=== PATIENT | male | born 1950 | race Caucasian/White ===

== ENCOUNTER 2017-06-13 09:03 | Day surgery (SDC) | payer OTHER ==
[~2017-06-13] VITALS: Ht 167.6 cm; Wt 68.0 kg
[~2017-06-13 09:03] MED LIST: AMOCLA875 PO; Aspirin EC81 MG PO; Ativan1 MG PO; Augmentin 875-1 EACH PO; BLOOD PRESURE MED; CLON1 PO; CLON2 PO; CRUTCH3 USE; DIPH50 PO; DULO30 PO; Flomax0.4 MG PO; HYDACE10B PO; HYDACE5 PO; IBUP800 PO; LOSA50 PO; Motion Sickness25 M1 PO; NAPR550 PO; NITR.4SL SL; Norco 5-325 Ta1 EACH PO; OXYACE5T PO; OXYC10TA19 PO; PROM25 PO; PROPECIA; Pepcid40 MG PO; Percocet 5-3251 EACH PO; QUIN5; RXHYDACE PO; RXIBUP800 PO; RXNAPNA550 PO; TAMS.4ER PO; TRAZ50 PO; VICODIN ES 7.51 EACH PO; VITAMIN D-32000 UNIT PO; ZESTORETIC 20-121 EA PO; Zofran Odt4 MG SL
== END 2017-06-13 10:57 | disposition home or self-care (01) ==
LOC: ORSCMMR 09:03 → ORD 10:00 → ORSCMMR 10:57
PROVIDERS: Internal Medicine Gastroenterology
PROC: 0DBK8ZX Excision of Ascending Colon, Via Natural or Artificial Opening Endoscopic, Diagnostic (ICD-10-PCS; principal; 2017-06-13 10:00)
PROC: 0DBP8ZX Excision of Rectum, Via Natural or Artificial Opening Endoscopic, Diagnostic (ICD-10-PCS; principal; 2017-06-13 10:00)
PROC: 0DBL8ZX Excision of Transverse Colon, Via Natural or Artificial Opening Endoscopic, Diagnostic (ICD-10-PCS; principal; 2017-06-13 10:00)
PROC: 0DBN8ZX Excision of Sigmoid Colon, Via Natural or Artificial Opening Endoscopic, Diagnostic (ICD-10-PCS; principal; 2017-06-13 10:00)
DX: Z12.11 Encounter for screening for malignant neoplasm of colon (principal); K62.1 Rectal polyp; D12.2 Benign neoplasm of ascending colon; D12.3 Benign neoplasm of transverse colon; I10 Essential (primary) hypertension; Z79.899 Other long term (current) drug therapy
CPT/HCPCS: 88305; J7120

== ENCOUNTER 2017-10-18 10:50 | Emergency (ER) | payer OTHER ==
[~2017-10-18] VITALS: Ht 167.6 cm; Wt 65.8 kg
[2017-10-18] MEDS ORDERED: Baclofen10 MG PO (12:42)
== END 2017-10-18 12:47 | disposition home or self-care (01) ==
LOC: ER 10:50
DX: S39.012A Strain of muscle, fascia and tendon of lower back, initial encounter (principal); I10 Essential (primary) hypertension; F41.9 Anxiety disorder, unspecified; Z91.048 Other nonmedicinal substance allergy status; Z79.899 Other long term (current) drug therapy; V89.9XXA Person injured in unspecified vehicle accident, initial encounter
CPT/HCPCS: 72100; 81000; 99283-25

== ENCOUNTER 2018-03-14 15:15 | Observation (INO) | payer OTHER ==
[~2018-03-14] VITALS: Ht 167.6 cm; Wt 64.3 kg
[~2018-03-14 15:15] MED LIST changes: +Baclofen10 MG PO
[2018-03-14 16:12] LABS: BASOPHILS ABSOLUTE AUTO 0.04 K/mm3 (0.00-0.23); BASOPHILS PERCENT AUTO 0 % (0-2); EOSINOPHILS ABSOLUTE AUTO 0.08 K/mm3 (0.00-0.68); EOSINOPHILS PERCENT AUTO 1 % (0-6); Hematocrit 44.5 % (37.0-53.0); Hemoglobin 14.6 g/dL (13.5-17.5); IMMATURE GRAN ABSOLUTE AUTO 0.04 K/mm3 (0.00-0.10); IMMATURE GRAN PERCENT AUTO 0 % (0-1); LYMPHOCYTES ABSOLUTE AUTO 0.67 K/mm3 (0.84-5.20); LYMPHOCYTES PERCENT AUTO 6 % (21-46); MONOCYTES ABSOLUTE AUTO 0.79 K/mm3 (0.16-1.47); MONOCYTES PERCENT AUTO 7 % (4-13); Mean Corpuscular HGB 30.5 pg (26.0-34.0); Mean Corpuscular HGB Conc 32.8 g/dL (31.5-36.5); Mean Corpuscular Volume 93 fL (80-100); Mean Platelet Volume 9.6 fL (9.1-12.4); NEUTROPHILS ABSOLUTE AUTO 9.25 K/mm3 (1.96-9.15); NEUTROPHILS PERCENT AUTO 85 % (41-73); Platelet Count 230 K/mm3 (150-400); RDW Coefficient Variation 14.2 % (11.7-14.2); Red Blood Cell Count 4.78 M/mm3 (4.30-5.90); White Blood Cell Count 10.87 K/mm3 (4.00-11.30)
[2018-03-14 16:18] LABS: Alanine Aminotransfer (ALT/SGP 33 U/L (12-78); Alk Phos 94 U/L (50-136); Anion Gap 9 mmol/L (6-16); Aspartate Aminotrans (AST/SGOT 36 U/L (12-37); Bilirubin, Total 0.7 mg/dL (0.1-1.0); Blood Urea Nitrogen 15 mg/dL (8-24); Bun/Creatinine Ratio 17.3 (12.0-20.0); CO2, Blood 23 mmol/L (21-32); Calcium, Blood 8.5 mg/dL (8.5-10.1); Chloride, Blood 107 mmol/L (98-108); Creatinine, Blood 0.87 mg/dL (0.60-1.20); Globulin, Blood 3.9 g/dL (2.2-4.0); Glomerular Filtration Rate >60 (60-); Glucose, Blood 74 mg/dL (70-99); Potassium, Blood 3.6 mmol/L (3.5-5.5); Sodium, Blood 139 mmol/L (136-145); Total Protein, Blood 7.9 g/dL (6.4-8.2); Troponin I <0.015 ng/mL (0.000-0.040)
--- NOTE | 2018-03-14 18:48 | NUR ---
PATIENT ARRIVED TO FLOOR AT 1840. A&O X4, INDEPENDENT IN THE ROOM. TELE PLACE. AT HIS SIDE. REPORT TO LARDER COOK NURSE.
[2018-03-14] MEDS ORDERED: MECLIZINE PO (18:54)
[2018-03-14] MEDS ORDERED: Klonopin0.5 MG PO (20:19)
[2018-03-14] MEDS ORDERED: BENADRYL25 MG PO (20:23)
[2018-03-14 22:34] LABS: CPK Creatine Kinase 413 U/L (39-308); Creatine Kinase MB 4.3 ng/mL (0.0-3.6); Troponin I <0.015 ng/mL (0.000-0.040)
[2018-03-15 04:29] LABS: BASOPHILS ABSOLUTE AUTO 0.03 K/mm3 (0.00-0.23); BASOPHILS PERCENT AUTO 0 % (0-2); EOSINOPHILS ABSOLUTE AUTO 0.76 K/mm3 (0.00-0.68); EOSINOPHILS PERCENT AUTO 9 % (0-6); Hematocrit 43.5 % (37.0-53.0); Hemoglobin 14.1 g/dL (13.5-17.5); IMMATURE GRAN ABSOLUTE AUTO 0.01 K/mm3 (0.00-0.10); IMMATURE GRAN PERCENT AUTO 0 % (0-1); LYMPHOCYTES ABSOLUTE AUTO 1.49 K/mm3 (0.84-5.20); LYMPHOCYTES PERCENT AUTO 18 % (21-46); MONOCYTES ABSOLUTE AUTO 0.92 K/mm3 (0.16-1.47); MONOCYTES PERCENT AUTO 11 % (4-13); Mean Corpuscular HGB 30.9 pg (26.0-34.0); Mean Corpuscular HGB Conc 32.4 g/dL (31.5-36.5); Mean Corpuscular Volume 95 fL (80-100); Mean Platelet Volume 9.5 fL (9.1-12.4); NEUTROPHILS ABSOLUTE AUTO 5.11 K/mm3 (1.96-9.15); NEUTROPHILS PERCENT AUTO 61 % (41-73); Platelet Count 222 K/mm3 (150-400); RDW Coefficient Variation 14.3 % (11.7-14.2); RDW Standard Deviation 50.1 fL (35.1-46.3); Red Blood Cell Count 4.57 M/mm3 (4.30-5.90); White Blood Cell Count 8.32 K/mm3 (4.00-11.30)
--- NOTE | 2018-03-15 04:50 | NUR ---
SHIFT SUMMARY PT REPORTS DIFFICULTY SLEEPING T/O NIGHT, SAYS HE "NORMALLY" HAS THIS ISSUE BUT TONIGHT IT FEELS " IF HE CAN'T TURN HIS BRAIN OFF." PT REPORTS FEELING ANXIOUS THIS AM, MEDICATED 2X T/O SHIFT W/1MG KLONOPIN PER ORDERS. PT DENIES ANY CHEST PAIN, SOB OR N/V THIS AM & VSS. PER CHARHOUSE WORKER MONITOR PT IS NSR W/OCCASIONAL PVC'S & HR 77. PT HAS BEEN NPO SINCE MIDNIGHT, EXCEPT FOR SIPS OF WATER W/MEDICATION. CALL LIGHT IS IN REACH & BED IS IN LOWEST POSITION.
[2018-03-15 04:51] LABS: CPK Creatine Kinase 351 U/L (39-308); Creatine Kinase MB 3.8 ng/mL (0.0-3.6); Creatine Kinase MB Index 1.1 (0.0-4.0); Troponin I <0.015 ng/mL (0.000-0.040)
[2018-03-15 04:53] LABS: Anion Gap 8 mmol/L (6-16); Blood Urea Nitrogen 20 mg/dL (8-24); Bun/Creatinine Ratio 19.6 (12.0-20.0); CHOL/HDL RATIO 4.1; CO2, Blood 27 mmol/L (21-32); Calcium, Blood 8.1 mg/dL (8.5-10.1); Chloride, Blood 107 mmol/L (98-108); Cholesterol 221 mg/dL (50-200); Creatinine, Blood 1.02 mg/dL (0.60-1.20); Glomerular Filtration Rate >60 (60-); Glucose, Blood 86 mg/dL (70-99); HDL Cholesterol 54 mg/dL (>39); LDL/HDL RATIO 2.8; Low Density Lipoprotein Chol 153 mg/dL (0-110); Potassium, Blood 3.8 mmol/L (3.5-5.5); Sodium, Blood 142 mmol/L (136-145); Triglycerides 71 mg/dL (30-160); Very Low Density Lipoprot Chol 14 mg/dL (6-32)
[2018-03-15] MEDS ORDERED: CYCL10 PO (12:36)
[2018-03-15] MEDS ORDERED: SERT50 PO (12:40)
[2018-03-15] MEDS ORDERED: TAMS.4ER PO (12:41)
[2018-03-15] MEDS ORDERED: Hair, Skin & N1 EACH PO (12:43)
[2018-03-15] MEDS ORDERED: ASPI81CH PO (12:43)
--- NOTE | 2018-03-15 13:49 | NUR ---
DISCHARGE SUMMARY PATIENT PLEASANT. ALL INFORMATION GIVEN TO THE PATIENT PRIOR TO DISCHARGE. IV REMOVED AND PATIENT WALKED OUT AFTER OFFERED A WHEELCHAIR. ALL MEDICATIONS TALKED THROUGH WITH PATIENT PRIOR TO HIS DISCHARGE.
== END 2018-03-15 13:59 | disposition home or self-care (01) ==
LOC: ER 15:15 → MEDS 15:16 → ER 15:16 → MEDS 15:16 → ENPENDDIS 03-15 11:07 → MEDS 03-15 13:59
PROVIDERS: Physician Assistant; ADMIT Internal Medicine
DX: R07.9 Chest pain, unspecified (principal); F41.0 Panic disorder [episodic paroxysmal anxiety]; I10 Essential (primary) hypertension; N40.0 Benign prostatic hyperplasia without lower urinary tract symptoms; Z79.899 Other long term (current) drug therapy; Z79.82 Long term (current) use of aspirin
CPT/HCPCS: 36415; 71046; 80048; 80053; 80061; 82550; 82553; 83036; 84484; 85025; 93005; 93010; 94762; 96374; 99285-25; G0378; J2060

== ENCOUNTER 2018-04-24 06:11 | Day surgery (SDC) | payer OTHER ==
[~2018-04-24] VITALS: Ht 167.6 cm; Wt 68.0 kg
[~2018-04-24 06:11] MED LIST changes: +ASPI81CH PO; +Allergy25 M1 PO; +BENADRYL25 MG PO; +CYCL10 PO; +HYDHCL25 PO; +Hair, Skin & N1 EACH PO; +LOSARTAN-HCTZ1 EACH PO; +MECLIZINE PO; +SERT50 PO; +Vitamin D2000 UNIT PO
--- NOTE | 2018-04-24 08:49 | NUR ---
Pt received from Luis Miguel FORDE from medical laboratory technologist. Pt is in recliner he has no radial site pain. Pt is sb/sr. Pt has call light he is in reclined postion fully awake taking po fluids. Pt stable at this time iv in left ac wnl with NS infusing at 200ml of fluid left in 1000ml bag. Right radial site wnl.
[2018-04-24] MEDS ORDERED: CLOP75 PO (08:59)
[2018-04-24] MEDS ORDERED: ASPI81CH PO (09:07)
[2018-04-24] MEDS ORDERED: METO100ER PO (11:52)
--- NOTE | 2018-04-24 13:21 | NUR ---
Report to Luis Miguel sanches reviewed medication with patient and . Ganga sanches.
--- NOTE | 2018-04-24 14:34 | NUR ---
DISCHARGE INSTRUCTIONS REVIEWED WITH PT AND IN DETAIL, USING ILLUMINATED AREAS PERTINENT TO THE CONTROL OF BLEEDING, IMMOBIILITY RESTRICTIONS AND INFECTION CONTROL. QUESTIONS ANSWERED. TR BAND REMOVED AND SITE CLEANED GENTLY. CLOTH DOT PLACED AND SPLINT BOARD REAPPLIED TO ANTERIOR FA ASPECT. IV DC'D WITH CANNULA INTACT. FOLDED 2X2 GAUZE PLACED WITH COBAN WRAP. PT AMBULATES WITHOUT GAIT DISTURBANCES OR ISSUES WITH BALANCE. STANDS AND WALKS WITHOUT VARIATION IN BODY CENTERING. DISCHARGED BY AMBULATION.
== END 2018-04-24 14:30 | disposition home or self-care (01) ==
LOC: MHTC 06:11
DX: R94.39 Abnormal result of other cardiovascular function study (principal); Z88.5 Allergy status to narcotic agent
CPT/HCPCS: 85347; 93454; 99152; 99153; C1725; C1769; C1874; C1887; C1894; C9600; J1644; J2250; J3010; J7030; Q9967

== ENCOUNTER 2018-08-20 13:04 | Emergency (ER) | payer SELFPAY ==
[~2018-08-20] VITALS: Ht 167.6 cm; Wt 68.0 kg
[~2018-08-20 13:04] MED LIST changes: -ASPI325 PO; -Cyclobenzaprine5 MG PO; -KETO10 PO
== END 2018-08-20 13:15 | disposition left against medical advice (07) ==
LOC: ER 13:04
DX: Z53.21 Procedure and treatment not carried out due to patient leaving prior to being seen by health care provider (principal)

== ENCOUNTER → 2018-08-20 | Outpatient (CLI) | payer OTHER ==
[~2018-08-20] MED LIST changes: +ACET325 PO; +ASPI325 PO; +ATOR40TA PO; +CLOP75 PO; +Cyclobenzaprine5 MG PO; +KETO10 PO; +LORA1 PO; +METO25ER PO; +Nitrostat0.4 MG SL
== END | disposition home or self-care (01) ==
LOC: LAB SHORT 13:03 → PLD 13:03
DX: D10.5 Benign neoplasm of other parts of oropharynx (principal)
CPT/HCPCS: 88305

== ENCOUNTER 2018-08-21 20:42 | Emergency (ER) | payer SELFPAY ==
[~2018-08-21] VITALS: Ht 154.9 cm; Wt 68.0 kg
== END 2018-08-21 21:20 | disposition left against medical advice (07) ==
LOC: ER 20:42
DX: Z53.21 Procedure and treatment not carried out due to patient leaving prior to being seen by health care provider (principal); R06.02 Shortness of breath

== ENCOUNTER 2018-11-06 23:56 | Emergency (ER) | payer OTHER ==
[~2018-11-06] VITALS: Ht 167.6 cm; Wt 68.0 kg
[2018-11-07] MEDS ORDERED: LOSARTAN-HCTZ1 EACH PO (00:08)
[2018-11-07] MEDS ORDERED: METO25ER PO (00:08)
[2018-11-07] MEDS ORDERED: CLOP75 PO (00:08)
[2018-11-07] MEDS ORDERED: ATOR40TA PO (00:09)
[2018-11-07] MEDS ORDERED: TAMS.4ER PO (00:09)
[2018-11-07] MEDS ORDERED: ASPI325 PO (00:09)
[2018-11-07] MEDS ORDERED: CLON1 PO (00:10)
[2018-11-07] MEDS ORDERED: SERT50 PO (00:10)
[2018-11-07] MEDS ORDERED: Cyclobenzaprine5 MG PO (00:26)
[2018-11-07] MEDS ORDERED: KETO10 PO (00:26)
== END 2018-11-07 00:45 | disposition home or self-care (01) ==
LOC: ER 23:56
DX: S16.1XXA Strain of muscle, fascia and tendon at neck level, initial encounter (principal); I10 Essential (primary) hypertension; F41.0 Panic disorder [episodic paroxysmal anxiety]; Z87.442 Personal history of urinary calculi; Z88.5 Allergy status to narcotic agent; Z91.048 Other nonmedicinal substance allergy status; Z79.82 Long term (current) use of aspirin; Z79.899 Other long term (current) drug therapy; V89.2XXA Person injured in unspecified motor-vehicle accident, traffic, initial encounter
CPT/HCPCS: 99284-25

== ENCOUNTER 2019-02-05 11:40 | Emergency (ER) | payer OTHER ==
[~2019-02-05] VITALS: Ht 167.6 cm; Wt 65.8 kg
[~2019-02-05 11:40] MED LIST changes: +ASPI325 PO; +Cyclobenzaprine5 MG PO; +KETO10 PO
[2019-02-05 12:22] LABS: BASOPHILS ABSOLUTE AUTO 0.04 K/mm3 (0.00-0.23); BASOPHILS PERCENT AUTO 1 % (0-2); EOSINOPHILS PERCENT AUTO 3 % (0-6); Hematocrit 45.8 % (37.0-53.0); IMMATURE GRAN ABSOLUTE AUTO 0.01 K/mm3 (0.00-0.10); IMMATURE GRAN PERCENT AUTO 0 % (0-1); LYMPHOCYTES ABSOLUTE AUTO 1.41 K/mm3 (0.84-5.20); LYMPHOCYTES PERCENT AUTO 18 % (21-46); MONOCYTES ABSOLUTE AUTO 0.99 K/mm3 (0.16-1.47); MONOCYTES PERCENT AUTO 13 % (4-13); Mean Corpuscular HGB 31.1 pg (26.0-34.0); Mean Corpuscular HGB Conc 32.8 g/dL (31.5-36.5); Mean Corpuscular Volume 95 fL (80-100); Mean Platelet Volume 9.3 fL (9.1-12.4); NEUTROPHILS ABSOLUTE AUTO 5.06 K/mm3 (1.96-9.15); NEUTROPHILS PERCENT AUTO 66 % (41-73); Platelet Count 263 K/mm3 (150-400); RDW Coefficient Variation 13.8 % (11.7-14.2); RDW Standard Deviation 48.8 fL (35.1-46.3); Red Blood Cell Count 4.82 M/mm3 (4.30-5.90); White Blood Cell Count 7.71 K/mm3 (4.00-11.30)
[2019-02-05 12:47] LABS: Alanine Aminotransfer (ALT/SGP 35 U/L (12-78); Albumin, Blood 3.9 g/dL (3.4-5.0); Albumin/Globulin Ratio 1.1 (0.8-1.8); Alk Phos 102 U/L (50-136); Anion Gap 4 mmol/L (6-16); Aspartate Aminotrans (AST/SGOT 29 U/L (12-37); Bilirubin, Total 0.8 mg/dL (0.1-1.0); Blood Urea Nitrogen 14 mg/dL (8-24); Bun/Creatinine Ratio 20.1 (12.0-20.0); CO2, Blood 29 mmol/L (21-32); Calcium, Blood 9.1 mg/dL (8.5-10.1); Chloride, Blood 108 mmol/L (98-108); Globulin, Blood 3.7 g/dL (2.2-4.0); Glomerular Filtration Rate >60 (60-); Glucose, Blood 93 mg/dL (70-99); Potassium, Blood 3.8 mmol/L (3.5-5.5); Sodium, Blood 141 mmol/L (136-145); Total Protein, Blood 7.6 g/dL (6.4-8.2); Troponin I <0.015 ng/mL (0.000-0.040)
[2019-02-05] MEDS ORDERED: Norco 10-325 T1 EACH PO (16:41)
== END 2019-02-05 16:57 | disposition home or self-care (01) ==
LOC: ER 11:40
PROVIDERS: Emergency Medicine
DX: R07.89 Other chest pain (principal); I10 Essential (primary) hypertension; F41.0 Panic disorder [episodic paroxysmal anxiety]; M54.9 Dorsalgia, unspecified; G89.29 Other chronic pain; M81.0 Age-related osteoporosis without current pathological fracture; Z88.5 Allergy status to narcotic agent; Z79.82 Long term (current) use of aspirin; Z79.899 Other long term (current) drug therapy; Z87.442 Personal history of urinary calculi
CPT/HCPCS: 36415; 71101; 71260; 80053; 84484; 85025; 93005; 93010; 99285-25; Q9967

== ENCOUNTER 2020-01-15 15:32 | Emergency (ER) | payer OTHER ==
[~2020-01-15] VITALS: Ht 167.6 cm; Wt 59.0 kg
[~2020-01-15 15:32] MED LIST changes: +Clonazepam1 M1 PO; +GABA100 PO; +Norco 10-325 T1 EACH PO
[2020-01-15] MEDS ORDERED: METO25ER PO (16:40)
[2020-01-15] MEDS ORDERED: SERT100 PO (16:42)
[2020-01-15] MEDS ORDERED: OXYC10TA19 PO (16:42)
[2020-01-15 17:16] LABS: BASOPHILS ABSOLUTE AUTO 0.03 K/mm3 (0.00-0.23); BASOPHILS PERCENT AUTO 0 % (0-2); EOSINOPHILS ABSOLUTE AUTO 0.04 K/mm3 (0.00-0.68); EOSINOPHILS PERCENT AUTO 1 % (0-6); Hematocrit 37.4 % (37.0-53.0); Hemoglobin 12.2 g/dL (13.5-17.5); IMMATURE GRAN ABSOLUTE AUTO 0.01 K/mm3 (0.00-0.10); IMMATURE GRAN PERCENT AUTO 0 % (0-1); LYMPHOCYTES ABSOLUTE AUTO 1.44 K/mm3 (0.84-5.20); LYMPHOCYTES PERCENT AUTO 20 % (21-46); MONOCYTES ABSOLUTE AUTO 0.73 K/mm3 (0.16-1.47); MONOCYTES PERCENT AUTO 10 % (4-13); Mean Corpuscular HGB 30.3 pg (26.0-34.0); Mean Corpuscular HGB Conc 32.6 g/dL (31.5-36.5); Mean Corpuscular Volume 93 fL (80-100); Mean Platelet Volume 8.6 fL (9.1-12.4); NEUTROPHILS ABSOLUTE AUTO 4.92 K/mm3 (1.96-9.15); NEUTROPHILS PERCENT AUTO 69 % (41-73); Platelet Count 362 K/mm3 (150-400); RDW Coefficient Variation 12.9 % (11.7-14.2); RDW Standard Deviation 44.2 fL (35.1-46.3); Red Blood Cell Count 4.03 M/mm3 (4.30-5.90); White Blood Cell Count 7.17 K/mm3 (4.00-11.30)
[2020-01-15 18:04] LABS: Alanine Aminotransfer (ALT/SGP 27 U/L (12-78); Albumin, Blood 3.3 g/dL (3.4-5.0); Albumin/Globulin Ratio 0.9 (0.8-1.8); Alk Phos 108 U/L (50-136); Anion Gap 4 mmol/L (6-16); Aspartate Aminotrans (AST/SGOT 20 U/L (12-37); Bilirubin, Total 0.3 mg/dL (0.1-1.0); Blood Urea Nitrogen 11 mg/dL (8-24); Bun/Creatinine Ratio 14.9 (12.0-20.0); CO2, Blood 28 mmol/L (21-32); Calcium, Blood 8.8 mg/dL (8.5-10.1); Chloride, Blood 108 mmol/L (98-108); Creatinine, Blood 0.74 mg/dL (0.60-1.20); Globulin, Blood 3.7 g/dL (2.2-4.0); Glomerular Filtration Rate >60 (60-); Glucose, Blood 83 mg/dL (70-99); Potassium, Blood 3.5 mmol/L (3.5-5.5); Sodium, Blood 140 mmol/L (136-145); Troponin I <0.015 ng/mL (0.000-0.040)
[2020-01-15 18:42] LABS: Influenza A, PCR Negative (NEGATIVE); Influenza B, PCR Negative (NEGATIVE); Resp Syncytial Virus, PCR Negative (NEGATIVE); SARS-Cov-2 (COVID-19) PCR, MMC Negative (NEGATIVE)
[2020-01-15 19:00] LABS: Source, Urine Clean Catch
[2020-01-15 19:08] LABS: Bilirubin, Urine Neg (Neg); Blood, Urine 2+ (Neg); Glucose Qualitative, Urine Neg (Neg); Ketones, Urine 1+ (Neg); Leukocyte Esterase, Urine 1+ (Neg); Nitrite, Urine Neg (Neg); Protein, Urine 1+ (Neg); Urobilinogen, Urine NORM (Normal)
[2020-01-15 19:24] LABS: Appearance, Urine Hazy (Clear); Color, Urine Yellow (P-Yellow)
[2020-01-15 19:26] LABS: Amorphous Light (0-Heavy); Bacteria Rare /hpf; Calcium Oxalate Crystals Many /hpf; Mucus Light (0-Heavy); Red Blood Cells, Urine 0-2 /hpf (0-2); Squamous Epithelial Cells Not Seen /hpf (Few); White Blood Cells, Urine 0-2 /hpf (0-5)
[2020-01-15] MEDS ORDERED: Zofran4 MG PO (19:54)
== END 2020-01-15 20:15 | disposition home or self-care (01) ==
LOC: ER 15:32
PROVIDERS: Physician Assistant
DX: R11.0 Nausea (principal); R53.81 Other malaise; R63.0 Anorexia; I10 Essential (primary) hypertension; F41.9 Anxiety disorder, unspecified; F41.0 Panic disorder [episodic paroxysmal anxiety]; I25.10 Atherosclerotic heart disease of native coronary artery without angina pectoris; Z98.890 Other specified postprocedural states; Z88.5 Allergy status to narcotic agent; Z91.09 Other allergy status, other than to drugs and biological substances; Z79.899 Other long term (current) drug therapy; Z20.828 Contact with and (suspected) exposure to other viral communicable diseases; Z79.82 Long term (current) use of aspirin; Z87.442 Personal history of urinary calculi; Z95.5 Presence of coronary angioplasty implant and graft
CPT/HCPCS: 0241U; 36415; 80053; 81001; 83690; 84484; 85025; 96361; 96374; 99283-25; A9270-GY; J2405; J7030

== ENCOUNTER 2020-01-18 20:56 | Emergency (ER) | payer OTHER ==
[~2020-01-18] VITALS: Ht 167.6 cm; Wt 63.5 kg
[~2020-01-18 20:56] MED LIST changes: +SERT100 PO; +Zofran4 MG PO
[2020-01-18] MEDS ORDERED: NITR.4SL SL (23:02)
[2020-01-18] MEDS ORDERED: CYCL10 PO (23:02)
== END 2020-01-18 23:14 | disposition home or self-care (01) ==
LOC: ER 20:56
DX: M79.604 Pain in right leg (principal); F41.0 Panic disorder [episodic paroxysmal anxiety]; F41.9 Anxiety disorder, unspecified; Z79.899 Other long term (current) drug therapy; Z95.5 Presence of coronary angioplasty implant and graft; Z91.09 Other allergy status, other than to drugs and biological substances; Z88.5 Allergy status to narcotic agent; Z79.02 Long term (current) use of antithrombotics/antiplatelets; Z87.442 Personal history of urinary calculi
CPT/HCPCS: 93971; 99283-25

== ENCOUNTER 2020-07-07 23:21 | Observation (INO) | payer OTHER ==
[~2020-07-07] VITALS: Ht 167.6 cm; Wt 68.2 kg
[2020-07-08] MEDS ORDERED: Aspir 8181 MG PO (00:28)
[2020-07-08 00:36] LABS: BASOPHILS ABSOLUTE AUTO 0.04 K/mm3 (0.00-0.23); BASOPHILS PERCENT AUTO 1 % (0-2); EOSINOPHILS PERCENT AUTO 3 % (0-6); Hematocrit 36.4 % (37.0-53.0); IMMATURE GRAN ABSOLUTE AUTO 0.02 K/mm3 (0.00-0.10); IMMATURE GRAN PERCENT AUTO 0 % (0-1); LYMPHOCYTES ABSOLUTE AUTO 1.29 K/mm3 (0.84-5.20); LYMPHOCYTES PERCENT AUTO 19 % (21-46); MONOCYTES ABSOLUTE AUTO 0.55 K/mm3 (0.16-1.47); MONOCYTES PERCENT AUTO 8 % (4-13); Mean Corpuscular HGB 30.3 pg (26.0-34.0); Mean Corpuscular Volume 92 fL (80-100); NEUTROPHILS ABSOLUTE AUTO 4.72 K/mm3 (1.96-9.15); NEUTROPHILS PERCENT AUTO 69 % (41-73); Platelet Count 222 K/mm3 (150-400); RDW Coefficient Variation 14.8 % (11.7-14.2); RDW Standard Deviation 50.3 fL (35.1-46.3); Red Blood Cell Count 3.96 M/mm3 (4.30-5.90); White Blood Cell Count 6.82 K/mm3 (4.00-11.30)
[2020-07-08 00:56] LABS: Alanine Aminotransfer (ALT/SGP 32 U/L (12-78); Albumin, Blood 3.4 g/dL (3.4-5.0); Albumin/Globulin Ratio 1.2 (0.8-1.8); Alk Phos 89 U/L (50-136); Anion Gap 6 mmol/L (6-16); Aspartate Aminotrans (AST/SGOT 23 U/L (12-37); Bilirubin, Total 0.2 mg/dL (0.1-1.0); Blood Urea Nitrogen 12 mg/dL (8-24); Bun/Creatinine Ratio 12.9 (12.0-20.0); CO2, Blood 26 mmol/L (21-32); Calcium, Blood 7.9 mg/dL (8.5-10.1); Chloride, Blood 107 mmol/L (98-108); Creatinine, Blood 0.93 mg/dL (0.60-1.20); Globulin, Blood 2.8 g/dL (2.2-4.0); Glomerular Filtration Rate >60 (60-); Glucose, Blood 107 mg/dL (70-99); Potassium, Blood 3.4 mmol/L (3.5-5.5); Sodium, Blood 139 mmol/L (136-145); Total Protein, Blood 6.2 g/dL (6.4-8.2); Troponin I <0.015 ng/mL (0.000-0.040)
[2020-07-08 01:19] LABS: SARS-Cov-2 (COVID-19) PCR, MMC NEGATIVE (NEGATIVE)
--- NOTE | 2020-07-08 04:43 | NUR ---
SHIFT SUMMARY REPORT RECIEVED FROM RUBÉN FORDE. PATIENT TO ROOM VIA STRETCHER AND TRANSFERRED INDEPENDENTLY TO THE BED @0125. PATIENT ACCOMPANIED BY HIS . PATIENT IS ALERT AND ORIENTED X4. INDEPENDENT IN THE ROOM. COMPLAINED OF 4/10 CP BUT REFUSED NITRO AND SAID HE THINKS HE IS JUST FEELING A LITTLE ANXIOUS. PATIENT NOW SLEEPING. SB IN THE 40s-50s. 02 SATS >95% ON RA. VSS, NO ACUTE CHANGES. CALL LIGHT IN REACH.
--- NOTE | 2020-07-08 12:59 | NUR ---
UPDATE PHARMACY COORDINATOR UPDATED ON PT'S HYPERTENSIVE STATE. ORDERS PROVIDED, SEE EMAR.
--- NOTE | 2020-07-08 13:56 | NUR ---
UPDATE PHYSICIAN NOTIFIED OF PT'S CONTINUING HYPERTENSIVE STATE. ORDERS PROVIDED. SEE EMAR.
--- NOTE | 2020-07-08 18:10 | NUR ---
Per admit trigger, I met with Mr. Nunez to offer information about advanced care planning. He was just out of surgery and spouse at [facility]. Both report neither need or desire to complete ACP forms.
--- NOTE | 2020-07-08 18:14 | NUR ---
SHIFT SUMMARY PT ALERT AND ORIENTED X 4. FRIEND AND UPDATED T/O SHIFT. FRIEND AT BEDSIDE THIS EVENING. PT TO HEART CENTER THIS AM FOR PACER PLACEMENT. SITE WNL UPON ARRIVAL BACK TO UNIT. PT HYPERTENSIVE. PHYSICIAN NOTIFIED. PRN MEDICATIONS ORDERED AND GIVEN. HR STABLE. BP REPORTS PAIN. MEDICATION GIVEN PER EMAR. PT REPORTS RELIEF. OXYGEN SATURATION MAINTAINED ABOVE 92% ON RA. CP NOTED THIS AM, HEALTH AND SOCIAL CARE TEACHER NOTIFIED. CARDIOLOGY FELT PAIN WAS RELATED TO ANXIETY D/T NEGATIVE TROPONIN AND EKG. PT REPORTS NO CP OR PRESSURE AFTER PROCEDURE. PT SBA IN ROOM. WILL CONTINUE TO MONITOR UNTIL REPORT GIVEN TO NIGHTSHIFT RN.
--- NOTE | 2020-07-09 04:37 | NUR ---
2000: 70 YO MALE S/P PACEMAKER INSERTION - INSERTION SITE ON LEFT SHOULDER IS DRESSED WITH PRESSURE DRESSING. NO DRAINAGE, BLEEDING, OR SWELLING NOTED. PT'S PAIN AT LEFT CHEST WALL WOUND IS WELL CONTROLLED WITH PAIN MEDICATION PRN (SEE MAR). PT MONITORED VIA TELEMETRY, SINUS AT 74. BLOOD PRESSURES ARE STABLE, PT CONTINUES TO SAT >94% ON ROOM AIR. IV IN RIGHT AC FLUSHED EASILY, SITE DRESSING IS C/D/I. CALL LIGHT WITHIN REACH, WILL CONTINUE TO MONITOR.
--- NOTE | 2020-07-09 06:07 | NUR ---
SHIFT SUMMARY PT SLEPT WELL MOST OF THE SHIFT, BLOOD PRESSURE WAS WELL CONTROLLED WITH SYSTOLIC 150-161. PAIN WELL MANAGED BY PRN MEDICATION.
[2020-07-09] MEDS ORDERED: OXAYDO5 M2 PO (09:22)
[2020-07-09] MEDS ORDERED: SENN187 PO (09:23)
[2020-07-09] MEDS ORDERED: VISBIOME 112.51 EACH PO (09:24)
[2020-07-09] MEDS ORDERED: CARV6.25 (09:26)
[2020-07-09] MEDS ORDERED: CEPH500 PO (09:27)
[2020-07-09] MEDS ORDERED: Acetaminophen325 M1 PO (09:28)
--- NOTE | 2020-07-09 10:42 | NUR ---
DISCHARGE INSTRUCTIONS REVIEWED BY DENISE WITH PT. LEFT ARM SLING IN PLACE. AMBULATED FROM UNIT WITHOUT DIFFICULTY.
== END 2020-07-09 10:21 | disposition home or self-care (01) ==
LOC: ER 23:21 → PCU 23:22
PROVIDERS: Physician Assistant; ADMIT Internal Medicine
DX: I49.5 Sick sinus syndrome (principal); R55 Syncope and collapse; I10 Essential (primary) hypertension; I25.10 Atherosclerotic heart disease of native coronary artery without angina pectoris; I25.2 Old myocardial infarction; I73.9 Peripheral vascular disease, unspecified; E78.5 Hyperlipidemia, unspecified; F41.9 Anxiety disorder, unspecified; G89.29 Other chronic pain; M54.9 Dorsalgia, unspecified; E87.6 Hypokalemia; G47.00 Insomnia, unspecified; N40.0 Benign prostatic hyperplasia without lower urinary tract symptoms; I47.1 Supraventricular tachycardia; Z79.82 Long term (current) use of aspirin; Z98.1 Arthrodesis status; Z95.5 Presence of coronary angioplasty implant and graft; Z88.5 Allergy status to narcotic agent; Z91.048 Other nonmedicinal substance allergy status; Z82.49 Family history of ischemic heart disease and other diseases of the circulatory system; Z20.822 Contact with and (suspected) exposure to COVID-19
CPT/HCPCS: 33208; 36415; 71045; 71046; 76937; 80053; 84484; 85025; 93005; 93010; 93306; 96365; 96375; 96376; 99152; 99153; 99285-25; A9270; C1781; C1785; C1894; C1898; G0378; J0360; J0690; J1644; J2060; J2250; J3010; J7030; J7040; J7050; U0004

== ENCOUNTER 2020-07-10 20:53 | Emergency (ER) | payer OTHER ==
[~2020-07-10] VITALS: Ht 167.6 cm; Wt 63.5 kg
[~2020-07-10 20:53] MED LIST changes: +Acetaminophen325 M1 PO; +Aspir 8181 MG PO; +CARV6.25; +CEPH500 PO; +OXAYDO5 M2 PO; +SENN187 PO; +VISBIOME 112.51 EACH PO
[2020-07-10 21:36] LABS: BASOPHILS ABSOLUTE AUTO 0.03 K/mm3 (0.00-0.23); BASOPHILS PERCENT AUTO 0 % (0-2); EOSINOPHILS ABSOLUTE AUTO 0.22 K/mm3 (0.00-0.68); EOSINOPHILS PERCENT AUTO 3 % (0-6); Hematocrit 40.8 % (37.0-53.0); Hemoglobin 13.4 g/dL (13.5-17.5); IMMATURE GRAN ABSOLUTE AUTO 0.02 K/mm3 (0.00-0.10); IMMATURE GRAN PERCENT AUTO 0 % (0-1); LYMPHOCYTES ABSOLUTE AUTO 1.17 K/mm3 (0.84-5.20); LYMPHOCYTES PERCENT AUTO 15 % (21-46); MONOCYTES ABSOLUTE AUTO 0.65 K/mm3 (0.16-1.47); MONOCYTES PERCENT AUTO 8 % (4-13); Mean Corpuscular HGB 30.1 pg (26.0-34.0); Mean Corpuscular HGB Conc 32.8 g/dL (31.5-36.5); Mean Corpuscular Volume 92 fL (80-100); Mean Platelet Volume 9.8 fL (9.1-12.4); NEUTROPHILS ABSOLUTE AUTO 5.65 K/mm3 (1.96-9.15); NEUTROPHILS PERCENT AUTO 73 % (41-73); Platelet Count 179 K/mm3 (150-400); RDW Coefficient Variation 14.4 % (11.7-14.2); RDW Standard Deviation 48.6 fL (35.1-46.3); Red Blood Cell Count 4.45 M/mm3 (4.30-5.90); White Blood Cell Count 7.74 K/mm3 (4.00-11.30)
== END 2020-07-10 22:56 | disposition home or self-care (01) ==
LOC: ER 20:53
PROVIDERS: Physician Assistant
DX: Z48.01 Encounter for change or removal of surgical wound dressing (principal); I10 Essential (primary) hypertension; Z91.09 Other allergy status, other than to drugs and biological substances; Z79.82 Long term (current) use of aspirin; Z79.899 Other long term (current) drug therapy
CPT/HCPCS: 36415; 71046; 85025; 99283-25

== ENCOUNTER 2020-09-05 14:06 | Observation (INO) | payer OTHER ==
[~2020-09-05] VITALS: Ht 167.6 cm; Wt 58.0 kg
[2020-09-05 14:52] LABS: BASOPHILS ABSOLUTE AUTO 0.03 K/mm3 (0.00-0.23); BASOPHILS PERCENT AUTO 1 % (0-2); EOSINOPHILS ABSOLUTE AUTO 0.21 K/mm3 (0.00-0.68); EOSINOPHILS PERCENT AUTO 4 % (0-6); Hemoglobin 13.3 g/dL (13.5-17.5); IMMATURE GRAN ABSOLUTE AUTO 0.02 K/mm3 (0.00-0.10); IMMATURE GRAN PERCENT AUTO 0 % (0-1); LYMPHOCYTES ABSOLUTE AUTO 1.27 K/mm3 (0.84-5.20); LYMPHOCYTES PERCENT AUTO 25 % (21-46); MONOCYTES ABSOLUTE AUTO 0.51 K/mm3 (0.16-1.47); MONOCYTES PERCENT AUTO 10 % (4-13); Mean Corpuscular HGB Conc 33.3 g/dL (31.5-36.5); Mean Corpuscular Volume 93 fL (80-100); Mean Platelet Volume 10.2 fL (9.1-12.4); NEUTROPHILS ABSOLUTE AUTO 3.12 K/mm3 (1.96-9.15); NEUTROPHILS PERCENT AUTO 60 % (41-73); Platelet Count 199 K/mm3 (150-400); RDW Coefficient Variation 14.3 % (11.7-14.2); RDW Standard Deviation 48.7 fL (35.1-46.3); Red Blood Cell Count 4.29 M/mm3 (4.30-5.90); White Blood Cell Count 5.16 K/mm3 (4.00-11.30)
[2020-09-05 15:06] LABS: Alanine Aminotransfer (ALT/SGP 32 U/L (12-78); Albumin, Blood 3.5 g/dL (3.4-5.0); Albumin/Globulin Ratio 1.1 (0.8-1.8); Alk Phos 93 U/L (50-136); Anion Gap 5 mmol/L (6-16); Aspartate Aminotrans (AST/SGOT 26 U/L (12-37); Bilirubin, Total 0.2 mg/dL (0.1-1.0); Blood Urea Nitrogen 18 mg/dL (8-24); CO2, Blood 25 mmol/L (21-32); Calcium, Blood 8.8 mg/dL (8.5-10.1); Chloride, Blood 112 mmol/L (98-108); Creatinine, Blood 0.95 mg/dL (0.60-1.20); Globulin, Blood 3.2 g/dL (2.2-4.0); Glomerular Filtration Rate >60 (60-); Glucose, Blood 113 mg/dL (70-99); Sodium, Blood 142 mmol/L (136-145); Total Protein, Blood 6.7 g/dL (6.4-8.2); Troponin I <0.015 ng/mL (0.000-0.040)
[2020-09-06 04:30] LABS: BASOPHILS ABSOLUTE AUTO 0.04 K/mm3 (0.00-0.23); BASOPHILS PERCENT AUTO 1 % (0-2); EOSINOPHILS PERCENT AUTO 5 % (0-6); Hematocrit 42.2 % (37.0-53.0); Hemoglobin 13.7 g/dL (13.5-17.5); IMMATURE GRAN ABSOLUTE AUTO 0.01 K/mm3 (0.00-0.10); IMMATURE GRAN PERCENT AUTO 0 % (0-1); LYMPHOCYTES ABSOLUTE AUTO 1.85 K/mm3 (0.84-5.20); LYMPHOCYTES PERCENT AUTO 32 % (21-46); MONOCYTES ABSOLUTE AUTO 0.51 K/mm3 (0.16-1.47); MONOCYTES PERCENT AUTO 9 % (4-13); Mean Corpuscular HGB 30.4 pg (26.0-34.0); Mean Corpuscular HGB Conc 32.5 g/dL (31.5-36.5); Mean Corpuscular Volume 94 fL (80-100); NEUTROPHILS ABSOLUTE AUTO 3.04 K/mm3 (1.96-9.15); NEUTROPHILS PERCENT AUTO 53 % (41-73); Platelet Count 189 K/mm3 (150-400); RDW Coefficient Variation 14.3 % (11.7-14.2); RDW Standard Deviation 50.2 fL (35.1-46.3); White Blood Cell Count 5.75 K/mm3 (4.00-11.30)
[2020-09-06 04:55] LABS: Anion Gap 4 mmol/L (6-16); Blood Urea Nitrogen 15 mg/dL (8-24); Bun/Creatinine Ratio 16.5 (12.0-20.0); CO2, Blood 26 mmol/L (21-32); Calcium, Blood 8.4 mg/dL (8.5-10.1); Chloride, Blood 113 mmol/L (98-108); Creatinine, Blood 0.91 mg/dL (0.60-1.20); Glomerular Filtration Rate >60 (60-); Glucose, Blood 86 mg/dL (70-99); Sodium, Blood 143 mmol/L (136-145); Troponin I <0.015 ng/mL (0.000-0.040)
--- NOTE | 2020-09-06 05:55 | NUR ---
SHIFT SUMMARY PT WAS A NEW ADMIT DURING THE NIGHT, ARRIVING ON THE FLOOR AT 2152. HE WAS ADMITTED FOR ANGINA. A&O X 4, INDEPENDENT IN THE ROOM. PT DENIED ANY CP ON ARRIVAL AT THE UNIT AND THROUGH THE NIGHT. NO C/O SOB OR NAUSEA. VITAL SIGNS STABLE. TELE SHOWED SB/NSR IN THE 50-60S. NO ACUTE CHANGES IN PT CONDITION NOTED SINCE ADMISSION. WILL CONTINUE TO MONITOR AND TREAT PER EMAR UNTIL HAND OFF TO DAY SHIFT RN.
--- NOTE | 2020-09-06 10:10 | NUR ---
PT DISCHARGED HOME. FOLLOW UP APPOINTMENTS MADE. MEDS SENT TO PHARMACY OF CHOICE, NEW MEDS EDUCATED ON. PRESENT UPON DISCHARGE . IV REMOVED, NO SS OF INFECTION NOTED. PT DRESSED SELF AND WAS TAKEN DOWN BY ESCORT.
== END 2020-09-06 10:00 | disposition home or self-care (01) ==
LOC: ER 14:06 → MEDS 14:07 → ENPENDDIS 09-06 09:20 → MEDS 09-06 10:00
PROVIDERS: Emergency Medicine; ADMIT Internal Medicine
DX: M94.0 Chondrocostal junction syndrome [Tietze] (principal); I25.10 Atherosclerotic heart disease of native coronary artery without angina pectoris; I49.5 Sick sinus syndrome; I67.9 Cerebrovascular disease, unspecified; E78.5 Hyperlipidemia, unspecified; I10 Essential (primary) hypertension; N40.0 Benign prostatic hyperplasia without lower urinary tract symptoms; F41.9 Anxiety disorder, unspecified; G47.00 Insomnia, unspecified; Z95.0 Presence of cardiac pacemaker; Z95.5 Presence of coronary angioplasty implant and graft; Z79.82 Long term (current) use of aspirin; Z88.5 Allergy status to narcotic agent; Z91.048 Other nonmedicinal substance allergy status; Z98.1 Arthrodesis status
CPT/HCPCS: 36415; 71046; 80048; 80053; 83880; 84484; 85025; 93005; 93010; A9270; Q0177

== ENCOUNTER 2021-02-17 07:00 | Emergency (ER) | payer OTHER ==
[~2021-02-17] VITALS: Ht 154.9 cm; Wt 63.5 kg
[2021-02-17] MEDS ORDERED: BACLOFEN5 M1 PO (08:05)
[2021-02-17] MEDS ORDERED: LIDO700A20 TOP (08:05)
[2021-02-18] MEDS ORDERED: NAPROXEN250 M1 PO (21:52)
[2021-02-18] MEDS ORDERED: HYDR1TAB94 PO (21:52)
== END 2021-02-17 08:42 | disposition home or self-care (01) ==
LOC: ER 07:00
DX: M54.2 Cervicalgia (principal); I25.10 Atherosclerotic heart disease of native coronary artery without angina pectoris; E78.5 Hyperlipidemia, unspecified; I11.0 Hypertensive heart disease with heart failure; I50.9 Heart failure, unspecified; Z88.5 Allergy status to narcotic agent; Z79.82 Long term (current) use of aspirin; Z79.899 Other long term (current) drug therapy; Z91.048 Other nonmedicinal substance allergy status
CPT/HCPCS: 96372; 99283-25; A9270; J1885

== ENCOUNTER 2021-02-18 16:05 | Emergency (ER) | payer OTHER ==
[~2021-02-18] VITALS: Ht 165.1 cm; Wt 63.5 kg
[~2021-02-18 16:05] MED LIST changes: +BACLOFEN5 M1 PO; +LIDO700A20 TOP
[2021-02-18] MEDS ORDERED: HYDR1TAB94 PO (21:52)
[2021-02-18] MEDS ORDERED: NAPROXEN250 M1 PO (21:52)
== END 2021-02-18 22:10 | disposition home or self-care (01) ==
LOC: ER 16:05
DX: S13.4XXA Sprain of ligaments of cervical spine, initial encounter (principal); I25.10 Atherosclerotic heart disease of native coronary artery without angina pectoris; I10 Essential (primary) hypertension; E78.5 Hyperlipidemia, unspecified; N40.0 Benign prostatic hyperplasia without lower urinary tract symptoms; Z95.5 Presence of coronary angioplasty implant and graft; G47.00 Insomnia, unspecified; Z95.0 Presence of cardiac pacemaker; Z91.048 Other nonmedicinal substance allergy status; Z88.5 Allergy status to narcotic agent; Z79.82 Long term (current) use of aspirin; Z79.899 Other long term (current) drug therapy; X58.XXXA Exposure to other specified factors, initial encounter
CPT/HCPCS: 70450; 72125; 96372; 99284-25; A9270; J1885

== ENCOUNTER 2021-11-29 21:39 | Emergency (ER) | payer OTHER ==
[~2021-11-29] VITALS: Ht 167.6 cm; Wt 59.0 kg
[~2021-11-29 21:39] MED LIST changes: +HYDR1TAB94 PO; +NAPROXEN250 M1 PO
[2021-11-29 22:33] LABS: BASOPHILS ABSOLUTE AUTO 0.04 K/mm3 (0.00-0.23); BASOPHILS PERCENT AUTO 1 % (0-2); EOSINOPHILS ABSOLUTE AUTO 0.26 K/mm3 (0.00-0.68); EOSINOPHILS PERCENT AUTO 4 % (0-6); Hemoglobin 14.4 g/dL (13.5-17.5); IMMATURE GRAN ABSOLUTE AUTO 0.01 K/mm3 (0.00-0.10); IMMATURE GRAN PERCENT AUTO 0 % (0-1); LYMPHOCYTES PERCENT AUTO 17 % (21-46); MONOCYTES ABSOLUTE AUTO 0.57 K/mm3 (0.16-1.47); MONOCYTES PERCENT AUTO 8 % (4-13); Mean Corpuscular HGB 31.3 pg (26.0-34.0); Mean Corpuscular HGB Conc 33.5 g/dL (31.5-36.5); Mean Corpuscular Volume 94 fL (80-100); Mean Platelet Volume 10.5 fL (9.1-12.4); NEUTROPHILS ABSOLUTE AUTO 5.06 K/mm3 (1.96-9.15); NEUTROPHILS PERCENT AUTO 71 % (41-73); Platelet Count 212 K/mm3 (150-400); RDW Coefficient Variation 13.4 % (11.7-14.2); RDW Standard Deviation 46.6 fL (35.1-46.3); White Blood Cell Count 7.14 K/mm3 (4.00-11.30)
[2021-11-29 22:59] LABS: Albumin, Blood 3.6 g/dL (3.4-5.0); Albumin/Globulin Ratio 1.1 (0.8-1.8); Bilirubin, Total 0.3 mg/dL (0.1-1.0); Bun/Creatinine Ratio 12.6 (12.0-20.0); Calcium, Blood 8.7 mg/dL (8.5-10.1); Creatinine, Blood 0.96 mg/dL (0.60-1.20); Globulin, Blood 3.3 g/dL (2.2-4.0); Potassium, Blood 3.8 mmol/L (3.5-5.5); Thyroid Stimulating Hormone 1.34 uIU/mL (0.360-4.800); Total Protein, Blood 6.9 g/dL (6.4-8.2)
== END 2021-11-30 01:27 | disposition home or self-care (01) ==
LOC: ER 21:39
PROVIDERS: Physician Assistant
DX: R07.9 Chest pain, unspecified (principal); R00.2 Palpitations; R42 Dizziness and giddiness; I47.1 Supraventricular tachycardia; I25.10 Atherosclerotic heart disease of native coronary artery without angina pectoris; I10 Essential (primary) hypertension; Z95.5 Presence of coronary angioplasty implant and graft; Z88.5 Allergy status to narcotic agent; Z91.048 Other nonmedicinal substance allergy status; Z79.899 Other long term (current) drug therapy; Z79.82 Long term (current) use of aspirin; Z95.0 Presence of cardiac pacemaker; E78.5 Hyperlipidemia, unspecified
CPT/HCPCS: 36415; 71046; 80053; 83690; 83880; 84443; 84484; 85025; 93005; 93010; 99285-25; A9270

== ENCOUNTER 2022-02-12 14:19 | Emergency (ER) | payer OTHER ==
[~2022-02-12] VITALS: Ht 154.9 cm; Wt 59.0 kg
[2022-02-12 15:42] LABS: Source, Urine Voided
[2022-02-12] MEDS ORDERED: SERT100 PO (15:42)
[2022-02-12] MEDS ORDERED: ATOR80 PO (15:43)
[2022-02-12] MEDS ORDERED: ATOR40TA PO (15:43)
[2022-02-12 15:44] LABS: Appearance, Urine Bloody (Clear); Bilirubin, Urine Neg (Neg); Blood, Urine 5+ (Neg); Color, Urine Red (P-Yellow); Glucose Qualitative, Urine Neg (Neg); Ketones, Urine Neg (Neg); Leukocyte Esterase, Urine 2+ (Neg); Nitrite, Urine Neg (Neg); Protein, Urine 4+ (Neg); Specific Gravity, Urine 1.015 (1.003-1.022); Urobilinogen, Urine NORM (Normal); pH, Urine 6.5 (5.0-8.0)
[2022-02-12 15:50] LABS: Red Blood Cells, Urine TNTC /hpf (0-2); White Blood Cells, Urine TNTC /hpf (0-5)
[2022-02-12 15:51] LABS: Bacteria Few /hpf; Granular Casts 0-2 /lpf (0); Hyaline Casts 0-2 /lpf (0-2); Squamous Epithelial Cells Rare /hpf (Few)
[2022-02-12 16:30] LABS: BASOPHILS ABSOLUTE AUTO 0.04 K/mm3 (0.00-0.23); BASOPHILS PERCENT AUTO 0 % (0-2); EOSINOPHILS ABSOLUTE AUTO 0.06 K/mm3 (0.00-0.68); EOSINOPHILS PERCENT AUTO 1 % (0-6); Hematocrit 43.8 % (37.0-53.0); Hemoglobin 14.3 g/dL (13.5-17.5); IMMATURE GRAN ABSOLUTE AUTO 0.04 K/mm3 (0.00-0.10); IMMATURE GRAN PERCENT AUTO 0 % (0-1); LYMPHOCYTES ABSOLUTE AUTO 1.09 K/mm3 (0.84-5.20); LYMPHOCYTES PERCENT AUTO 9 % (21-46); MONOCYTES ABSOLUTE AUTO 1.04 K/mm3 (0.16-1.47); MONOCYTES PERCENT AUTO 8 % (4-13); Mean Corpuscular HGB 30.5 pg (26.0-34.0); Mean Corpuscular HGB Conc 32.6 g/dL (31.5-36.5); Mean Corpuscular Volume 93 fL (80-100); Mean Platelet Volume 9.5 fL (9.1-12.4); NEUTROPHILS ABSOLUTE AUTO 10.17 K/mm3 (1.96-9.15); NEUTROPHILS PERCENT AUTO 82 % (41-73); Platelet Count 205 K/mm3 (150-400); RDW Coefficient Variation 13.6 % (11.7-14.2); RDW Standard Deviation 46.1 fL (35.1-46.3); Red Blood Cell Count 4.69 M/mm3 (4.30-5.90); White Blood Cell Count 12.44 K/mm3 (4.00-11.30)
[2022-02-12 17:06] LABS: Albumin, Blood 3.9 g/dL (3.4-5.0); Albumin/Globulin Ratio 1.1 (0.8-1.8); Bilirubin, Total 0.5 mg/dL (0.1-1.0); Bun/Creatinine Ratio 15.7 (12.0-20.0); Calcium, Blood 8.9 mg/dL (8.5-10.1); Creatinine, Blood 0.89 mg/dL (0.60-1.20); Globulin, Blood 3.4 g/dL (2.2-4.0); Potassium, Blood 3.7 mmol/L (3.5-5.5); Total Protein, Blood 7.3 g/dL (6.4-8.2)
[2022-02-12] MEDS ORDERED: OXAYDO5 M1 PO (18:53)
[2022-02-12] MEDS ORDERED: CEFD300 PO (18:53)
== END 2022-02-12 19:04 | disposition home or self-care (01) ==
LOC: ER 14:19
PROVIDERS: Student in an Organized Health Care Education/Training Program
DX: N12 Tubulo-interstitial nephritis, not specified as acute or chronic (principal); N30.91 Cystitis, unspecified with hematuria; I25.10 Atherosclerotic heart disease of native coronary artery without angina pectoris; I10 Essential (primary) hypertension; E78.5 Hyperlipidemia, unspecified; Z88.5 Allergy status to narcotic agent; Z91.09 Other allergy status, other than to drugs and biological substances; Z79.899 Other long term (current) drug therapy; Z79.82 Long term (current) use of aspirin; Z95.0 Presence of cardiac pacemaker
CPT/HCPCS: 36415; 51798; 74176; 80053; 81001; 85025; A9270; J0696; J3010; J7030

== ENCOUNTER 2022-03-08 14:32 | Emergency (ER) | payer OTHER ==
[~2022-03-08] VITALS: Ht 167.6 cm; Wt 59.0 kg
[~2022-03-08 14:32] MED LIST changes: +ATOR80 PO; +CEFD300 PO; +OXAYDO5 M1 PO
[2022-03-08 15:33] LABS: BASOPHILS ABSOLUTE AUTO 0.03 K/mm3 (0.00-0.23); BASOPHILS PERCENT AUTO 0 % (0-2); EOSINOPHILS ABSOLUTE AUTO 0.08 K/mm3 (0.00-0.68); EOSINOPHILS PERCENT AUTO 1 % (0-6); Hematocrit 40.1 % (37.0-53.0); Hemoglobin 13.5 g/dL (13.5-17.5); IMMATURE GRAN ABSOLUTE AUTO 0.02 K/mm3 (0.00-0.10); IMMATURE GRAN PERCENT AUTO 0 % (0-1); LYMPHOCYTES ABSOLUTE AUTO 1.11 K/mm3 (0.84-5.20); LYMPHOCYTES PERCENT AUTO 14 % (21-46); MONOCYTES PERCENT AUTO 8 % (4-13); Mean Corpuscular HGB Conc 33.7 g/dL (31.5-36.5); Mean Corpuscular Volume 92 fL (80-100); Mean Platelet Volume 9.5 fL (9.1-12.4); NEUTROPHILS ABSOLUTE AUTO 5.87 K/mm3 (1.96-9.15); NEUTROPHILS PERCENT AUTO 76 % (41-73); Platelet Count 265 K/mm3 (150-400); RDW Coefficient Variation 13.2 % (11.7-14.2); RDW Standard Deviation 45.1 fL (35.1-46.3); Red Blood Cell Count 4.36 M/mm3 (4.30-5.90); White Blood Cell Count 7.71 K/mm3 (4.00-11.30)
[2022-03-08 15:50] LABS: Albumin, Blood 3.5 g/dL (3.4-5.0); Albumin/Globulin Ratio 0.9 (0.8-1.8); Bilirubin, Total 0.3 mg/dL (0.1-1.0); Bun/Creatinine Ratio 13.9 (12.0-20.0); Calcium, Blood 8.8 mg/dL (8.5-10.1); Creatinine, Blood 0.94 mg/dL (0.60-1.20); Globulin, Blood 3.7 g/dL (2.2-4.0); Potassium, Blood 3.8 mmol/L (3.5-5.5); Total Protein, Blood 7.2 g/dL (6.4-8.2)
[2022-03-08 17:46] LABS: Source, Urine Clean Catch
[2022-03-08 17:53] LABS: Appearance, Urine Hazy (Clear); Bilirubin, Urine Neg (Neg); Blood, Urine 5+ (Neg); Color, Urine Yellow (P-Yellow); Glucose Qualitative, Urine Neg (Neg); Ketones, Urine Neg (Neg); Leukocyte Esterase, Urine 2+ (Neg); Nitrite, Urine Neg (Neg); Protein, Urine 2+ (Neg); Specific Gravity, Urine 1.015 (1.003-1.022); Urobilinogen, Urine NORM (Normal)
[2022-03-08 18:12] LABS: Bacteria Mod /hpf; Hyaline Casts 0-2 /lpf (0-2); Red Blood Cells, Urine 25-50 /hpf (0-2); Squamous Epithelial Cells Few /hpf (Few); Transitional Epithelial Cells Rare /hpf (0-Rare)
[2022-03-08] MEDS ORDERED: Pyridium100 MG PO (19:17)
== END 2022-03-08 19:50 | disposition home or self-care (01) ==
LOC: ER 14:32
PROVIDERS: Physician Assistant
DX: N39.0 Urinary tract infection, site not specified (principal); R39.89 Other symptoms and signs involving the genitourinary system; I25.10 Atherosclerotic heart disease of native coronary artery without angina pectoris; I10 Essential (primary) hypertension; E78.5 Hyperlipidemia, unspecified; Z79.899 Other long term (current) drug therapy; Z88.5 Allergy status to narcotic agent; Z91.09 Other allergy status, other than to drugs and biological substances; Z95.0 Presence of cardiac pacemaker; Z95.5 Presence of coronary angioplasty implant and graft
CPT/HCPCS: 36415; 80053; 81001; 85025; A9270; J0696

== ENCOUNTER 2022-06-22 12:14 | Emergency (ER) | payer OTHER ==
[~2022-06-22] VITALS: Ht 165.1 cm; Wt 61.2 kg
[~2022-06-22 12:14] MED LIST changes: +Pyridium100 MG PO
[2022-06-22 12:16] VITALS: BP 179/117
[2022-06-22 13:06] LABS: Source, Urine Clean Catch
[2022-06-22 13:14] LABS: Appearance, Urine Clear (Clear); Bilirubin, Urine Neg (Neg); Blood, Urine 1+ (Neg); Glucose Qualitative, Urine Neg (Neg); Ketones, Urine Neg (Neg); Leukocyte Esterase, Urine 2+ (Neg); Nitrite, Urine Neg (Neg); Protein, Urine 1+ (Neg); Specific Gravity, Urine 1.005 (1.003-1.022); Urobilinogen, Urine NORM (Normal)
[2022-06-22 13:15] LABS: Albumin, Blood 3.4 g/dL (3.4-5.0); Albumin/Globulin Ratio 0.9 (0.8-1.8); BASOPHILS ABSOLUTE AUTO 0.04 K/mm3 (0.00-0.23); BASOPHILS PERCENT AUTO 0 % (0-2); Bilirubin, Total 0.2 mg/dL (0.1-1.0); Bun/Creatinine Ratio 17.5 (12.0-20.0); Calcium, Blood 8.6 mg/dL (8.5-10.1); Creatinine, Blood 0.97 mg/dL (0.60-1.20); EOSINOPHILS ABSOLUTE AUTO 0.26 K/mm3 (0.00-0.68); EOSINOPHILS PERCENT AUTO 3 % (0-6); Globulin, Blood 3.8 g/dL (2.2-4.0); Hematocrit 43.6 % (37.0-53.0); Hemoglobin 13.9 g/dL (13.5-17.5); IMMATURE GRAN ABSOLUTE AUTO 0.02 K/mm3 (0.00-0.10); IMMATURE GRAN PERCENT AUTO 0 % (0-1); LYMPHOCYTES ABSOLUTE AUTO 1.31 K/mm3 (0.84-5.20); LYMPHOCYTES PERCENT AUTO 13 % (21-46); MONOCYTES ABSOLUTE AUTO 0.79 K/mm3 (0.16-1.47); MONOCYTES PERCENT AUTO 8 % (4-13); Mean Corpuscular HGB 29.5 pg (26.0-34.0); Mean Corpuscular HGB Conc 31.9 g/dL (31.5-36.5); Mean Corpuscular Volume 93 fL (80-100); NEUTROPHILS ABSOLUTE AUTO 7.48 K/mm3 (1.96-9.15); NEUTROPHILS PERCENT AUTO 76 % (41-73); Platelet Count 241 K/mm3 (150-400); Potassium, Blood 4.4 mmol/L (3.5-5.5); RDW Coefficient Variation 14.4 % (11.7-14.2); RDW Standard Deviation 49.4 fL (35.1-46.3); Red Blood Cell Count 4.71 M/mm3 (4.30-5.90); Total Protein, Blood 7.2 g/dL (6.4-8.2)
[2022-06-22 13:26] LABS: Color, Urine Pale Yellow (P-Yellow)
[2022-06-22 13:29] LABS: Bacteria Few /hpf; Squamous Epithelial Cells Rare /hpf (Few)
[2022-06-22] MEDS ORDERED: Bactrim Ds Tab1 EACH PO (14:42)
[2022-06-22] MEDS ORDERED: Norco 5-325 Ta1 EACH PO (15:32)
== END 2022-06-22 15:36 | disposition home or self-care (01) ==
LOC: ER 12:14
PROVIDERS: Physician Assistant
DX: N20.0 Calculus of kidney (principal); I25.10 Atherosclerotic heart disease of native coronary artery without angina pectoris; I10 Essential (primary) hypertension; E78.5 Hyperlipidemia, unspecified; Z88.5 Allergy status to narcotic agent; Z91.048 Other nonmedicinal substance allergy status; Z79.899 Other long term (current) drug therapy
CPT/HCPCS: 74177; 80053; 81001; 85025; A9270; J2405; J3010; Q9967

== ENCOUNTER 2022-10-11 17:07 | Observation (INO) | payer OTHER ==
[~2022-10-11 17:07] MED LIST changes: +Bactrim Ds Tab1 EACH PO; -CARV6.25; +CARV6.25 PO
[2022-10-11 17:40] LABS: BASOPHILS ABSOLUTE AUTO 0.03 K/mm3 (0.00-0.23); BASOPHILS PERCENT AUTO 0 % (0-2); EOSINOPHILS ABSOLUTE AUTO 0.03 K/mm3 (0.00-0.68); EOSINOPHILS PERCENT AUTO 0 % (0-6); Hemoglobin 15.1 g/dL (13.5-17.5); IMMATURE GRAN ABSOLUTE AUTO 0.02 K/mm3 (0.00-0.10); IMMATURE GRAN PERCENT AUTO 0 % (0-1); LYMPHOCYTES ABSOLUTE AUTO 1.13 K/mm3 (0.84-5.20); LYMPHOCYTES PERCENT AUTO 10 % (21-46); MONOCYTES ABSOLUTE AUTO 1.36 K/mm3 (0.16-1.47); MONOCYTES PERCENT AUTO 12 % (4-13); Mean Corpuscular HGB 31.2 pg (26.0-34.0); Mean Corpuscular HGB Conc 34.3 g/dL (31.5-36.5); Mean Corpuscular Volume 91 fL (80-100); Mean Platelet Volume 9.4 fL (9.1-12.4); NEUTROPHILS ABSOLUTE AUTO 8.68 K/mm3 (1.96-9.15); NEUTROPHILS PERCENT AUTO 77 % (41-73); Platelet Count 205 K/mm3 (150-400); RDW Coefficient Variation 14.8 % (11.7-14.2); RDW Standard Deviation 49.9 fL (35.1-46.3); Red Blood Cell Count 4.84 M/mm3 (4.30-5.90); White Blood Cell Count 11.25 K/mm3 (4.00-11.30)
[2022-10-11 18:09] LABS: Albumin, Blood 3.7 g/dL (3.4-5.0); Bilirubin, Total 0.7 mg/dL (0.1-1.0); Bun/Creatinine Ratio 14.7 (12.0-20.0); Calcium, Blood 8.8 mg/dL (8.5-10.1); Creatinine, Blood 0.89 mg/dL (0.60-1.20); Globulin, Blood 3.8 g/dL (2.2-4.0); Potassium, Blood 3.7 mmol/L (3.5-5.5); Total Protein, Blood 7.5 g/dL (6.4-8.2)
[2022-10-11 18:47] LABS: Source, Urine Clean Catch
[2022-10-11 18:54] LABS: Bilirubin, Urine Neg (Neg); Blood, Urine 4+ (Neg); Glucose Qualitative, Urine Neg (Neg); Ketones, Urine Neg (Neg); Leukocyte Esterase, Urine 3+ (Neg); Nitrite, Urine Neg (Neg); Protein, Urine 2+ (Neg); Specific Gravity, Urine 1.015 (1.003-1.022); Urobilinogen, Urine NORM (Normal)
[2022-10-11 19:07] LABS: Color, Urine Yellow (P-Yellow)
[2022-10-11 19:08] LABS: Appearance, Urine Clear (Clear)
[2022-10-11 19:09] LABS: Bacteria Many /hpf; Squamous Epithelial Cells Few /hpf (Few); White Blood Cells, Urine TNTC /hpf (0-5)
[2022-10-11] MEDS ORDERED: ASPI81CH PO (19:38)
[2022-10-11] MEDS ORDERED: METO50ER PO (23:52)
[2022-10-11] MEDS ORDERED: FLUT.05NI (23:52)
[2022-10-11] MEDS ORDERED: NITROGLYCERIN 0.2 MG (23:54)
[2022-10-12 00:33] VITALS: BP 152/89
--- NOTE | 2022-10-12 01:20 | NUR ---
PATIENT IS A NEW ADMIT FROM THE ED. AXOX 4 AND ARRIVED VIA W/C SELF TRANSFER TO BED. DENIES CHEST PAIN, SOB, AND N/V. ON ROOM AIR. TELEMETRY PLACED AND REPORTS PACED @ 76. ORIENTED TO ROOM AND CALL LIGHT SYSTEM. FOOD PROVIDED PER DIET ORDERS. NPO 4 HOURS BEFORE STRESS TEST. REPORTS WANTS TO WATCH TV AFTER ASSESSMENT. CALL LIGHT IN REACH. WCTM.
--- NOTE | 2022-10-12 04:05 | NUR ---
SHIFT SUMMARY PATIENT HAD NO ACUTE CHANGES. AXOX 4 AND INDEPENDENT IN ROOM. DENIES CHEST PAIN, SOB, AND N/V. TELEMETRY NSR PACED @ 76. PIV REMAINS INTACT. KLONOPIN 1 MG GIVEN FOR INSOMNIA. VSS/AFEBRILE. WATCHED TV AND NEXT ABLE TO SLEEP. NPO FOUR HOURS PRIOR TO STRESS TEST. CALL LIGHT IN REACH. BED IN LOWEST POSITION. WILL CONTINUE TO MONITOR UNTIL DAY SHIFT NURSE ASSUMES CARE.
[2022-10-12 05:13] LABS: BASOPHILS ABSOLUTE AUTO 0.03 K/mm3 (0.00-0.23); BASOPHILS PERCENT AUTO 0 % (0-2); EOSINOPHILS ABSOLUTE AUTO 0.09 K/mm3 (0.00-0.68); EOSINOPHILS PERCENT AUTO 1 % (0-6); Hematocrit 43.9 % (37.0-53.0); Hemoglobin 14.7 g/dL (13.5-17.5); IMMATURE GRAN ABSOLUTE AUTO 0.02 K/mm3 (0.00-0.10); IMMATURE GRAN PERCENT AUTO 0 % (0-1); LYMPHOCYTES ABSOLUTE AUTO 1.31 K/mm3 (0.84-5.20); LYMPHOCYTES PERCENT AUTO 15 % (21-46); MONOCYTES ABSOLUTE AUTO 1.44 K/mm3 (0.16-1.47); MONOCYTES PERCENT AUTO 16 % (4-13); Mean Corpuscular HGB 30.9 pg (26.0-34.0); Mean Corpuscular HGB Conc 33.5 g/dL (31.5-36.5); Mean Corpuscular Volume 92 fL (80-100); Mean Platelet Volume 10.1 fL (9.1-12.4); NEUTROPHILS PERCENT AUTO 68 % (41-73); Platelet Count 185 K/mm3 (150-400); RDW Coefficient Variation 14.6 % (11.7-14.2); RDW Standard Deviation 50.1 fL (35.1-46.3); Red Blood Cell Count 4.75 M/mm3 (4.30-5.90); White Blood Cell Count 8.99 K/mm3 (4.00-11.30)
[2022-10-12 05:54] LABS: Alanine Aminotransfer (ALT/SGP 28 U/L (12-78); Albumin, Blood 3.3 g/dL (3.4-5.0); Albumin/Globulin Ratio 0.8 (0.8-1.8); Alk Phos 86 U/L (50-136); Anion Gap 6 mmol/L (6-16); Aspartate Aminotrans (AST/SGOT 21 U/L (12-37); Bilirubin, Total 0.4 mg/dL (0.1-1.0); Blood Urea Nitrogen 15 mg/dL (8-24); CHOL/HDL RATIO 2.5; CO2, Blood 26 mmol/L (21-32); Calcium, Blood 8.5 mg/dL (8.5-10.1); Chloride, Blood 107 mmol/L (98-108); Cholesterol 145 mg/dL (50-200); Creatinine, Blood 0.88 mg/dL (0.60-1.20); Globulin, Blood 3.9 g/dL (2.2-4.0); Glomerular Filtration Rate 93 (60-); Glucose, Blood 104 mg/dL (70-99); HDL Cholesterol 59 mg/dL (>39); LDL/HDL RATIO 1.1; Low Density Lipoprotein Chol 67 mg/dL (0-110); Magnesium, Blood 2.1 mg/dL (1.6-2.4); Potassium, Blood 3.5 mmol/L (3.5-5.5); Sodium, Blood 139 mmol/L (136-145); Thyroid Stimulating Hormone 0.948 uIU/mL (0.360-4.800); Total Protein, Blood 7.2 g/dL (6.4-8.2); Triglycerides 96 mg/dL (30-160); Very Low Density Lipoprot Chol 19 mg/dL (6-32)
[2022-10-12 07:31] VITALS: BP 138/72
--- NOTE | 2022-10-12 08:45 | NUR ---
PATIENT STATES THIS MORNING THAT HE IS GOING TO HAVE HIS STRESS TEST DONE OUTPATIENT, DR DURON CALLED AND VERIFIED. NUCLEAR MED NOTIFIED STRESS TEST CANCELLED. PATIENT WITH NO ACUTE EVENTS OVERNIGHT, DENIES ANY NAUSEA AT THIS TIME.
[2022-10-12] MEDS ORDERED: CEFU500T30 PO (13:09)
--- NOTE | 2022-10-12 13:53 | NUR ---
DISCHARGE SUMMARY PATIENT WITH NO ACUTE EVENTS THROUGH SHIFT. PATIENT DECLINED STRESS TEST TODAY. EDUCATION AND MEDICATION PACKET PRINTED AND PROVIDED TO PATIENT. CONSENTS SIGNED. IV AND TELEMETRY REMOVED FROM PATIENT. PATIENT ESCORTED OUT OF BUILDING BY ALEM LLOYD TO UPPER LEVEL EXIT, LEAVING PRIVAE VEHICLE WITH FAMILY.
== END 2022-10-12 13:28 | disposition home or self-care (01) ==
LOC: ER 17:07 → MEDS 17:08
PROVIDERS: Student in an Organized Health Care Education/Training Program; ADMIT Student in an Organized Health Care Education/Training Program
DX: R07.89 Other chest pain (principal); F41.9 Anxiety disorder, unspecified; R82.71 Bacteriuria; I25.10 Atherosclerotic heart disease of native coronary artery without angina pectoris; E78.5 Hyperlipidemia, unspecified; I10 Essential (primary) hypertension; R31.29 Other microscopic hematuria; G89.29 Other chronic pain; M54.9 Dorsalgia, unspecified; Z95.5 Presence of coronary angioplasty implant and graft; Z95.0 Presence of cardiac pacemaker
CPT/HCPCS: 36415; 71046; 80053; 80061; 81001; 83605; 83690; 83735; 84443; 84484; 85025; 85379; 87040; 87077; 87086; 87186; 93005; 93010; 96365; 96366; 96372; 96375; 99285-25; A9270; G0378; J0696; J1650

== ENCOUNTER 2023-01-04 22:58 | Observation (INO) | payer OTHER ==
[~2023-01-04] VITALS: Ht 167.6 cm; Wt 64.1 kg
[~2023-01-04 22:58] MED LIST changes: +CEFU500T30 PO; +FLUT.05NI; +METO50ER PO; +NITROGLYCERIN TOP
[2023-01-04] MEDS ORDERED: FINA5 PO (23:08)
[2023-01-04] MEDS ORDERED: LOSARTAN POTASS25 M2 PO (23:09)
[2023-01-04 23:31] LABS: BASOPHILS ABSOLUTE AUTO 0.04 K/mm3 (0.00-0.23); BASOPHILS PERCENT AUTO 1 % (0-2); EOSINOPHILS ABSOLUTE AUTO 0.13 K/mm3 (0.00-0.68); EOSINOPHILS PERCENT AUTO 2 % (0-6); Hematocrit 42.1 % (37.0-53.0); IMMATURE GRAN ABSOLUTE AUTO 0.01 K/mm3 (0.00-0.10); IMMATURE GRAN PERCENT AUTO 0 % (0-1); LYMPHOCYTES ABSOLUTE AUTO 0.84 K/mm3 (0.84-5.20); LYMPHOCYTES PERCENT AUTO 14 % (21-46); MONOCYTES ABSOLUTE AUTO 0.39 K/mm3 (0.16-1.47); MONOCYTES PERCENT AUTO 6 % (4-13); Mean Corpuscular HGB 30.8 pg (26.0-34.0); Mean Corpuscular HGB Conc 33.3 g/dL (31.5-36.5); Mean Corpuscular Volume 93 fL (80-100); Mean Platelet Volume 10.6 fL (9.1-12.4); NEUTROPHILS ABSOLUTE AUTO 4.75 K/mm3 (1.96-9.15); NEUTROPHILS PERCENT AUTO 77 % (41-73); Platelet Count 216 K/mm3 (150-400); RDW Coefficient Variation 14.6 % (11.7-14.2); RDW Standard Deviation 50.3 fL (35.1-46.3); Red Blood Cell Count 4.54 M/mm3 (4.30-5.90); White Blood Cell Count 6.16 K/mm3 (4.00-11.30)
[2023-01-04 23:52] LABS: Albumin, Blood 3.6 g/dL (3.4-5.0); Bilirubin, Total 0.4 mg/dL (0.1-1.0); Calcium, Blood 8.4 mg/dL (8.5-10.1); Creatinine, Blood 1.08 mg/dL (0.60-1.20); Globulin, Blood 3.6 g/dL (2.2-4.0); Potassium, Blood 3.9 mmol/L (3.5-5.5); Total Protein, Blood 7.2 g/dL (6.4-8.2)
[2023-01-05 05:53] VITALS: BP 150/82
--- NOTE | 2023-01-05 06:36 | NUR ---
ASSUMPTION OF CARE ASSUMED CARE FROM ER. PT AXO4. INDEPENDENT, C/O MILD CP, LESS THAN WHAT HE PRESENTED WITH IN ER. VSS, MILD HTN NOTED. ADMISSION COMPLETED. PT EDUCATED TO PROPER HOSPITAL POLICY/PROCEDURE. LAYING IN BED NOW.
[2023-01-05 07:13] VITALS: BP 139/86
[2023-01-05 07:46] VITALS: BP 152/93
--- NOTE | 2023-01-05 18:39 | NUR ---
SHIFT SUMMARY AND DISCHARGE PATIENT DISCHARGED HOME. DISCHARGE INSTRUCTIONS REVIEWED WITH PATIENT. PATIENT INSISTED ON SHOWERING BEFORE HE LEFT AND INSISTED TO HAVE HIS IV REMOVED PRIOR TO SHOWER. PATIENT INDEPENDENT IN THE ROOM. REFUSES TO HAVE HAVE STRESS TEST DONE AND WANTING TO GO HOME. PATIENT TRANSPORTED OUT VIA WHEELCHAIR BY POLICE RESERVES COMMANDER. BELONGINGS RETURNED TO PATIENT. HOME MEDS SENT HOME WITH PATIENT. IV DC'D PRIOR TO SHOWER.
== END 2023-01-05 14:58 | disposition home or self-care (01) ==
LOC: ER 22:58 → MEDS 22:59 → ERHOLD 22:59 → MEDS 01-05 05:44 → ENPENDDIS 01-05 13:07 → MEDS 01-05 14:58
PROVIDERS: Emergency Medicine; ADMIT Internal Medicine
DX: R07.89 Other chest pain (principal); I25.10 Atherosclerotic heart disease of native coronary artery without angina pectoris; E78.5 Hyperlipidemia, unspecified; I10 Essential (primary) hypertension; F41.9 Anxiety disorder, unspecified; Z88.5 Allergy status to narcotic agent; I49.5 Sick sinus syndrome; Z95.0 Presence of cardiac pacemaker; Z95.5 Presence of coronary angioplasty implant and graft; Z72.0 Tobacco use
CPT/HCPCS: 71046; 80053; 83036; 84484; 85025; 93005; 93010; 96372; 99285-25; A9270; G0378; J1650

== ENCOUNTER 2023-03-05 16:40 | Emergency (ER) | payer OTHER ==
[~2023-03-05] VITALS: Ht 167.6 cm; Wt 63.5 kg
[~2023-03-05 16:40] MED LIST changes: +FINA5 PO; +LOSARTAN POTASS25 M2 PO
[2023-03-05 17:00] VITALS: BP 162/81
[2023-03-05] MEDS ORDERED: BENZ100A PO (17:14)
== END 2023-03-05 17:15 | disposition home or self-care (01) ==
LOC: ER 16:40
DX: J06.9 Acute upper respiratory infection, unspecified (principal); Z88.5 Allergy status to narcotic agent; Z91.048 Other nonmedicinal substance allergy status; Z79.899 Other long term (current) drug therapy; Z79.82 Long term (current) use of aspirin; I25.10 Atherosclerotic heart disease of native coronary artery without angina pectoris; I10 Essential (primary) hypertension; G47.00 Insomnia, unspecified
CPT/HCPCS: 99284

== ENCOUNTER 2023-03-13 01:38 | Emergency (ER) | payer OTHER ==
[~2023-03-13] VITALS: Ht 167.6 cm; Wt 63.5 kg
[~2023-03-13 01:38] MED LIST changes: +BENZ100A PO
[2023-03-13 02:52] LABS: BASOPHILS ABSOLUTE AUTO 0.02 K/mm3 (0.00-0.23); BASOPHILS PERCENT AUTO 0 % (0-2); EOSINOPHILS ABSOLUTE AUTO 0.12 K/mm3 (0.00-0.68); EOSINOPHILS PERCENT AUTO 2 % (0-6); Hematocrit 40.4 % (37.0-53.0); Hemoglobin 13.5 g/dL (13.5-17.5); IMMATURE GRAN ABSOLUTE AUTO 0.01 K/mm3 (0.00-0.10); IMMATURE GRAN PERCENT AUTO 0 % (0-1); LYMPHOCYTES ABSOLUTE AUTO 1.14 K/mm3 (0.84-5.20); LYMPHOCYTES PERCENT AUTO 15 % (21-46); MONOCYTES ABSOLUTE AUTO 0.65 K/mm3 (0.16-1.47); MONOCYTES PERCENT AUTO 9 % (4-13); Mean Corpuscular HGB 30.3 pg (26.0-34.0); Mean Corpuscular HGB Conc 33.4 g/dL (31.5-36.5); Mean Corpuscular Volume 91 fL (80-100); Mean Platelet Volume 9.2 fL (9.1-12.4); NEUTROPHILS ABSOLUTE AUTO 5.49 K/mm3 (1.96-9.15); NEUTROPHILS PERCENT AUTO 74 % (41-73); Platelet Count 203 K/mm3 (150-400); RDW Coefficient Variation 13.9 % (11.7-14.2); RDW Standard Deviation 46.6 fL (35.1-46.3); Red Blood Cell Count 4.45 M/mm3 (4.30-5.90); White Blood Cell Count 7.43 K/mm3 (4.00-11.30)
[2023-03-13 02:58] LABS: U Amphetamine Screen Not Detected; U Barbituate Screen Not Detected; U Benzodiazapine Screen Not Detected; U Cannabinoids Screen DETECTED; U Cocaine Screen Not Detected; U Methamphetamine Screen Not Detected
[2023-03-13 02:59] LABS: U Buprenorphine Screen Not Detected; U Methadone Screen Not Detected; U Opiates Screen Not Detected; U Oxycodone Screen Not Detected; U Phencyclidine Screen Not Detected
[2023-03-13 03:18] LABS: Albumin, Blood 3.5 g/dL (3.4-5.0); Albumin/Globulin Ratio 0.9 (0.8-1.8); Bilirubin, Total 0.4 mg/dL (0.1-1.0); Bun/Creatinine Ratio 26.6 (12.0-20.0); Calcium, Blood 8.7 mg/dL (8.5-10.1); Creatinine, Blood 0.79 mg/dL (0.60-1.20); Globulin, Blood 3.7 g/dL (2.2-4.0); Potassium, Blood 3.7 mmol/L (3.5-5.5); Total Protein, Blood 7.2 g/dL (6.4-8.2)
[2023-03-13 05:30] VITALS: BP 134/86
== END 2023-03-13 05:35 | disposition home or self-care (01) ==
LOC: ER 01:38
PROVIDERS: Emergency Medicine
DX: R07.89 Other chest pain (principal); I11.0 Hypertensive heart disease with heart failure; I50.9 Heart failure, unspecified; I25.10 Atherosclerotic heart disease of native coronary artery without angina pectoris; I49.5 Sick sinus syndrome; E78.5 Hyperlipidemia, unspecified; F41.9 Anxiety disorder, unspecified; N40.0 Benign prostatic hyperplasia without lower urinary tract symptoms; G47.00 Insomnia, unspecified; Z91.048 Other nonmedicinal substance allergy status; Z88.5 Allergy status to narcotic agent; Z79.899 Other long term (current) drug therapy; Z79.51 Long term (current) use of inhaled steroids; Z79.82 Long term (current) use of aspirin
CPT/HCPCS: 71046; 80053; 84484; 85025; 93005; 93010; 99284-25

== ENCOUNTER 2023-08-05 21:11 | Emergency (ER) | payer OTHER ==
[~2023-08-05] VITALS: Ht 167.6 cm; Wt 63.5 kg
[2023-08-05 21:18] VITALS: BP 153/79
[2023-08-05] MEDS ORDERED: OxyCODONE HCL 5 MG TAB PO ONE (22:40)
[2023-08-05] MEDS ORDERED: Ketorolac Tromethamine 15mg Vial IM ONE (22:40)
[2023-08-05] MEDS ORDERED: RX Prepack 6 Tabs Oxycodone 5mg UD ONE (22:40)
== END 2023-08-05 22:58 | disposition home or self-care (01) ==
LOC: ER 21:11
DX: M79.621 Pain in right upper arm (principal); W18.30XA Fall on same level, unspecified, initial encounter; I25.10 Atherosclerotic heart disease of native coronary artery without angina pectoris; I10 Essential (primary) hypertension; E78.5 Hyperlipidemia, unspecified; F41.9 Anxiety disorder, unspecified; Z95.0 Presence of cardiac pacemaker; Z95.5 Presence of coronary angioplasty implant and graft; Z88.5 Allergy status to narcotic agent; Z91.048 Other nonmedicinal substance allergy status; Z79.82 Long term (current) use of aspirin; Z79.899 Other long term (current) drug therapy
CPT/HCPCS: 73030; 73060; 96372; 99283-25; A9270; J1885

== ENCOUNTER 2023-08-20 16:13 | Emergency (ER) | payer OTHER ==
[~2023-08-20] VITALS: Ht 167.6 cm; Wt 65.8 kg
[2023-08-20 16:22] VITALS: BP 167/100
[2023-08-20] MEDS ORDERED: TRAM50 PO ×2 (17:51→18:10)
== END 2023-08-20 18:05 | disposition home or self-care (01) ==
LOC: ER 16:13
DX: M54.50 Low back pain, unspecified (principal); G89.29 Other chronic pain; I10 Essential (primary) hypertension; E78.5 Hyperlipidemia, unspecified; Z79.51 Long term (current) use of inhaled steroids; Z79.899 Other long term (current) drug therapy; Z79.82 Long term (current) use of aspirin; Z91.09 Other allergy status, other than to drugs and biological substances
CPT/HCPCS: 72070; 72100; 99283-25

== ENCOUNTER 2023-10-23 07:29 | Day surgery (SDC) | payer OTHER ==
[~2023-10-23] VITALS: Ht 167.6 cm; Wt 63.2 kg
[~2023-10-23 07:29] MED LIST changes: +TRAM50 PO
[2023-10-23] MEDS ORDERED: Tranexamic Acid 100 ML IV ONE (07:37)
[2023-10-23] MEDS ORDERED: Lactated Ringer's 1,000 ML IV ONE ×3 (07:38→11:40)
[2023-10-23] MEDS ORDERED: CeFAZolin Sodium 2,000 MG VIAL ONE (07:38)
[2023-10-23] MEDS ORDERED: NS 50 ML IV ONE (07:38)
[2023-10-23] MEDS ORDERED: EPINEPhrine HCl 1 MG/ML 1ML Amp ONE (08:05)
[2023-10-23] MEDS ORDERED: Dexamethasone Sod Phos 10 MG/ML 1ML VIAL ONE (08:06)
[2023-10-23] MEDS ORDERED: Ondansetron HCl 2 MG / ML 2ML Vial ONE (08:06)
[2023-10-23] MEDS ORDERED: Bupivacaine 0.5% HCl 5 MG/ML 30MLVIAL ONE (08:06)
[2023-10-23] MEDS ORDERED: Rocuronium Bromide 10 MG/ML 5ML Injection IV ONE (08:07)
[2023-10-23] MEDS ORDERED: propofoL 60 ML IV ONE (08:07)
[2023-10-23] MEDS ORDERED: Midazolam HCl 1MG / ML 2ML Vial ONE (08:42)
[2023-10-23] MEDS ORDERED: FentaNYL Citrate 50 MCG/ML 2 ML Injection ONE (08:42)
[2023-10-23] MEDS ORDERED: EPINEPhrine HCl 1 MG/ML 1ML Amp XX ONE (09:47)
[2023-10-23] MEDS ORDERED: Lidocaine 2%-Epineph 1:100000 20 ML MDV INJ ONE (09:47)
[2023-10-23] MEDS ORDERED: ePHEDrine Sulfate 50 MG/ML 1ML Injection ONE (09:55)
--- NOTE | 2023-10-23 09:56 | NUR ---
10/23/23 0956 Jeronimo Mcbride 1 MG EPI ADDED TO EACH OF THE FIRST 3 BAGS OF LR FOR IRRIGATION AT [facility].
[2023-10-23] MEDS ORDERED: propofoL 20 ML IV ONE (10:29)
[2023-10-23] MEDS ORDERED: Sugammadex Sodium 200 MG/2ML SDV (100 MG/ML) ONE (10:36)
[2023-10-23] MEDS ORDERED: Lidocaine 2%-Epineph 1:100000 20 ML MDV ONE (10:46)
--- NOTE | 2023-10-23 12:14 | NUR ---
10/23/23 1214 DELICIA VÁZQUEZ PT STATES HE NEEDS TO URINATE, BUT PT VERY SLEEPY. WILL TRY A URINAL. ROSSY FORDE ASSISTING
[2023-10-23] MEDS ORDERED: OxyCODONE HCL 5 MG TAB ONE (13:24)
--- NOTE | 2023-10-23 14:02 | NUR ---
10/23/23 1402 Darby Finch PT REQUESTED A PAIN PILL. THIS RN EDUCATED PT ON EATING SOMETHING BEFORE GIVING A PAIN PILL OXYCODONE. PT STATED THAT HIS PAIN WAS BETWEEN A 3-5/10. THIS RN ASKED PT IF HE'D RATE IT A 4.5, AND PT SAID "YES". 1330: PT ABLE TO TOLERATE A SNACK, CRACKERS AND APPLESAUCE. AFTERWARDS, THIS RN GAVE PT A PAIN PILL OXYCODONE 5MG VIA PO. PT HAS HARD SCRIPT FOR OXY, PT'S FRIEND RICHARD, WILL FILL RX SOON POSSIBLE. PT PLEASANT AND FRIENDLY. ALL QUESTIONS WERE ANSWERED/CONCERNS ADDRESSED. PT EDUCATION REGARDING THE INSENTIVE SPIROMETER, AND THE POLAR PACK PROVIDED TO PT AND LIFE PARTNER, RICHARD. PT ABLE TO URINATE 2X AFTER PROCEDURE.
[2023-10-23 16:02] VITALS: BP 161/96
== END 2023-10-23 13:53 | disposition home or self-care (01) ==
LOC: ORSCSDS 07:29
PROVIDERS: Orthopaedic Surgery Sports Medicine
PROC: 0RNJ4ZZ Release Right Shoulder Joint, Percutaneous Endoscopic Approach (ICD-10-PCS; principal; 2023-10-23 08:30)
PROC: 0LM14ZZ Reattachment of Right Shoulder Tendon, Percutaneous Endoscopic Approach (ICD-10-PCS; principal; 2023-10-23 08:30)
DX: M75.121 Complete rotator cuff tear or rupture of right shoulder, not specified as traumatic (principal); I10 Essential (primary) hypertension; E78.5 Hyperlipidemia, unspecified; I25.10 Atherosclerotic heart disease of native coronary artery without angina pectoris; Z95.0 Presence of cardiac pacemaker; Z79.899 Other long term (current) drug therapy; Z79.82 Long term (current) use of aspirin
CPT/HCPCS: A9270; C1713; J0171; J0690; J1100; J2250; J2405; J2704; J3010; J7120

== ENCOUNTER 2023-10-25 21:25 | Observation (INO) | payer OTHER ==
[~2023-10-25] VITALS: Ht 165.1 cm; Wt 62.1 kg
[2023-10-25] MEDS ORDERED: Nitroglycerin 0.4 MG SUBL SL PRN (21:35)
[2023-10-25] MEDS ORDERED: FentaNYL Citrate 50 MCG/ML 2 ML Injection IV ONE ×2 (21:35→22:25)
[2023-10-25 21:43] LABS: BASOPHILS ABSOLUTE AUTO 0.03 K/mm3 (0.00-0.23); BASOPHILS PERCENT AUTO 0 % (0-2); EOSINOPHILS ABSOLUTE AUTO 0.04 K/mm3 (0.00-0.68); EOSINOPHILS PERCENT AUTO 0 % (0-6); Hematocrit 38.8 % (37.0-53.0); Hemoglobin 13.1 g/dL (13.5-17.5); IMMATURE GRAN ABSOLUTE AUTO 0.05 K/mm3 (0.00-0.10); IMMATURE GRAN PERCENT AUTO 0 % (0-1); LYMPHOCYTES ABSOLUTE AUTO 1.61 K/mm3 (0.84-5.20); LYMPHOCYTES PERCENT AUTO 13 % (21-46); MONOCYTES ABSOLUTE AUTO 1.22 K/mm3 (0.16-1.47); MONOCYTES PERCENT AUTO 10 % (4-13); Mean Corpuscular HGB 30.3 pg (26.0-34.0); Mean Corpuscular HGB Conc 33.8 g/dL (31.5-36.5); Mean Corpuscular Volume 90 fL (80-100); Mean Platelet Volume 9.5 fL (9.1-12.4); NEUTROPHILS ABSOLUTE AUTO 9.36 K/mm3 (1.96-9.15); NEUTROPHILS PERCENT AUTO 76 % (41-73); Platelet Count 287 K/mm3 (150-400); RDW Coefficient Variation 14.8 % (11.7-14.2); RDW Standard Deviation 48.9 fL (35.1-46.3); Red Blood Cell Count 4.33 M/mm3 (4.30-5.90); White Blood Cell Count 12.31 K/mm3 (4.00-11.30)
[2023-10-25 22:00] LABS: International Normalized Ratio 0.99; Prothrombin Time Results 10.6 Sec (9.7-11.5)
[2023-10-25 22:09] LABS: Albumin, Blood 3.2 g/dL (3.4-5.0); Albumin/Globulin Ratio 0.7 (0.8-1.8); Bilirubin, Total 0.6 mg/dL (0.1-1.0); Bun/Creatinine Ratio 15.4 (12.0-20.0); Calcium, Blood 9.5 mg/dL (8.5-10.1); Creatinine, Blood 0.78 mg/dL (0.60-1.20); Globulin, Blood 4.3 g/dL (2.2-4.0); Potassium, Blood 3.8 mmol/L (3.5-5.5); Total Protein, Blood 7.5 g/dL (6.4-8.2)
[2023-10-25] MEDS ORDERED: Nitroglycerin 1 INCH/GM PKT TOP ONE (22:25)
[2023-10-25] MEDS ORDERED: HYDROmorphone HCl/Pf 1MG SYR IV ONE (23:15)
[2023-10-25] MEDS ORDERED: Heparin Sodium 5000 Units/ML 1ML MDV IV ONE (23:40)
[2023-10-25] MEDS ORDERED: Heparin Sodium,Porcine/0.5 NS 500 ML IV SCH (23:40)
[2023-10-26] MEDS ORDERED: Ondansetron HCl 2 MG / ML 2ML Vial IV PRN (01:10)
[2023-10-26] MEDS ORDERED: NS 1,000 ML IV SCH (01:10)
[2023-10-26] MEDS ORDERED: Nitroglycerin 0.4 MG SUBL SL PRN (01:10)
[2023-10-26] MEDS ORDERED: Acetaminophen 325 MG TABLET PO PRN (01:10)
[2023-10-26] MEDS ORDERED: FentaNYL Citrate 50 MCG/ML 2 ML Injection IV PRN (01:10)
[2023-10-26] MEDS ORDERED: Mag Hydrox/Al Hydrox/Simeth 72 ML,Lidocaine 2% Viscous Soln 36 ML,Atropine/Scopalam/Hyo... PO PRN (01:25)
[2023-10-26] MEDS ORDERED: OXYC5 (01:41)
[2023-10-26 02:04] VITALS: BP 175/102
[2023-10-26] MEDS ORDERED: HydrALAZINE HCl 20 MG / ML 1ML Vial IV PRN (02:25)
[2023-10-26 03:02] VITALS: BP 180/106
[2023-10-26 04:43] LABS: BASOPHILS ABSOLUTE AUTO 0.04 K/mm3 (0.00-0.23); BASOPHILS PERCENT AUTO 0 % (0-2); EOSINOPHILS ABSOLUTE AUTO 0.06 K/mm3 (0.00-0.68); EOSINOPHILS PERCENT AUTO 1 % (0-6); Hematocrit 41.1 % (37.0-53.0); Hemoglobin 13.7 g/dL (13.5-17.5); IMMATURE GRAN ABSOLUTE AUTO 0.02 K/mm3 (0.00-0.10); IMMATURE GRAN PERCENT AUTO 0 % (0-1); LYMPHOCYTES ABSOLUTE AUTO 1.73 K/mm3 (0.84-5.20); LYMPHOCYTES PERCENT AUTO 16 % (21-46); MONOCYTES ABSOLUTE AUTO 1.23 K/mm3 (0.16-1.47); MONOCYTES PERCENT AUTO 11 % (4-13); Mean Corpuscular HGB 29.9 pg (26.0-34.0); Mean Corpuscular HGB Conc 33.3 g/dL (31.5-36.5); Mean Corpuscular Volume 90 fL (80-100); Mean Platelet Volume 9.9 fL (9.1-12.4); NEUTROPHILS ABSOLUTE AUTO 7.86 K/mm3 (1.96-9.15); NEUTROPHILS PERCENT AUTO 72 % (41-73); Platelet Count 262 K/mm3 (150-400); RDW Coefficient Variation 14.9 % (11.7-14.2); RDW Standard Deviation 49.2 fL (35.1-46.3); Red Blood Cell Count 4.58 M/mm3 (4.30-5.90); White Blood Cell Count 10.94 K/mm3 (4.00-11.30)
[2023-10-26] MEDS ORDERED: ClonazePAM 1 MG Tab PO ONE ×2 (05:00→15:15)
[2023-10-26] MEDS ORDERED: HYDROmorphone HCl/Pf 1MG SYR IV ONE (05:00)
[2023-10-26] MEDS ORDERED: Ketorolac Tromethamine 15mg Vial IV PRN (05:00)
[2023-10-26 05:38] LABS: Albumin, Blood 3.3 g/dL (3.4-5.0); Albumin/Globulin Ratio 0.7 (0.8-1.8); Bilirubin, Total 0.6 mg/dL (0.1-1.0); Bun/Creatinine Ratio 17.7 (12.0-20.0); Calcium, Blood 9.5 mg/dL (8.5-10.1); Creatinine, Blood 0.74 mg/dL (0.60-1.20); Globulin, Blood 4.5 g/dL (2.2-4.0); Potassium, Blood 3.6 mmol/L (3.5-5.5); Total Protein, Blood 7.8 g/dL (6.4-8.2)
--- NOTE | 2023-10-26 05:43 | NUR ---
ADMISSION/SHIFT SUMMARY REPORT RECIEVED FROM ER NURSE. PATIENT ARRIVED TO PCU 13, ABLE TO STAND AND TRANSFER SELF TO BED. PER PATIENT, HE HAD ROTATOR CUFF SURGERY 10/24/23 PATIENT'S RIGHT ARM IN SLING. PATIENT STATING THAT CHEST PAIN WAS MORE TOLERABLE NOW THAT HE IS IN PCU. PATIENT ANSWERING ALL QUESTIONS APPROPRIATELY. HYPERTENSIVE ON ADMISSION, RESIDENT WAS CALLED AND RESIDENT PLACED ORDERS FOR PRN MEDICATIONS. PATIENT ORIENTED TO ROOM AND CALL LIGHT SYSTEM. AFTER PATIENT SETTLED IN ROOM, PATIENT REPORTED CHEST PAIN. PATIENT WAS MEDICATED WITH FENTYNAL WITH NO RELIEF. PATIENT CONTINUED TO REPORT CHEST PAIN AND DESCRIBED IT "PINCHING". PATIENT WAS MEDICATED WITH GI COCKTAIL WITHOUT RELIEF WELL. PATIENT CONTINUED TO REPORT CHEST PAIN AND BECAME MORE RESTLESS. RESIDENT UPDATED. HOME ANXIETY MEDICATION ORDERED. HOSPITALIST UPDATED, ADDITIONAL MEDICATIONS ORDERED.
--- NOTE | 2023-10-26 05:50 | NUR ---
UPDATE PATIENT RECEIVED HOME CLONAZEPAM IN HOPES TO RELAX PATIENT AND PROVIDE SOME RELIEF. ROUNDED ON PATIENT AFTER ABOUT 45 MINUTES TO REASSESS PATIENT'S CHEST PAIN. PATIENT RESTING IN BED WITH EYES OPEN, WATCHING TV. PATIENT STATES "I FEEL ABOUT THE SAME, FRUSTRATING". SEE UPDATED EMAR FOR FURTHER MEDICATION ADMINISTRATIONS.
[2023-10-26] MEDS ORDERED: Carvedilol 3.125 MG Tab PO SCH (08:00)
[2023-10-26 08:22] VITALS: BP 144/89
[2023-10-26] MEDS ORDERED: Sertraline HCl 100 MG Tab PO SCH (09:00)
[2023-10-26] MEDS ORDERED: Aspirin 81 MG Chew PO SCH (09:00)
[2023-10-26] MEDS ORDERED: Losartan Potassium 25 MG Tab PO SCH (09:00)
[2023-10-26] MEDS ORDERED: Enoxaparin 40 MG/0.4 ML SYR SC SCH (09:00)
[2023-10-26] MEDS ORDERED: Finasteride 5 MG Tab PO SCH (09:00)
[2023-10-26] MEDS ORDERED: Fluticasone 0.05% Nasal Spray SCH (09:00)
--- NOTE | 2023-10-26 12:20 | NUR ---
PATIENT TRANSFER FROM PCU, MEDICATED FOR PAIN, ICE PACK TO RIGHT SHOULDER, CLEARLY MAKES NEEDS KNOWN, ALERT AND ORIENTED TO ALL, CALL LIGHT WITH IN REACH
--- NOTE | 2023-10-26 16:39 | NUR ---
PATIENT ATE, WAITING FOR STRESS TEST, LEFT FA IV SL, INDEPDANT IN ROOM
[2023-10-26 17:27] VITALS: BP 168/84
--- NOTE | 2023-10-26 17:55 | NUR ---
NO ACUTE CHANGES, FIRST PORTION OF STRESS TEST DONE TODAY, MEDICATED WITH TORADOL, FENTANYL AND CLONAZEPAM. FRIEND IN VISITING, NEW IV TO LEFT FA, EATING DINNER AND THEN NPO AT MIDNIGHT, NO CAFFEINE. RIGHT ROTATOR CUFF REPAIR ELEVATED ON PILLOWS, ICE PACK TO RIGHT ARM. INDEPDANT IN ROOM, CALL LIGHT WITH IN REACH, WILL RELAY TO PM RN
[2023-10-26 19:21] VITALS: BP 186/91
[2023-10-26] MEDS ORDERED: ClonazePAM 1 MG Tab PO SCH ×2 (21:00)
[2023-10-26] MEDS ORDERED: Tamsulosin HCl 0.4 MG Cap PO SCH (21:00)
[2023-10-26] MEDS ORDERED: Atorvastatin 40 MG Tab PO SCH (21:00)
--- NOTE | 2023-10-27 03:54 | NUR ---
SHIFT SUMMARY 73 YR M ADMITTED ON 10/25/23. FULL CODE. NO ACUTE CHANGES THIS SHIFT. AT BEGINNING OF SHIFT PT HAD BP OF 186/91 AND WAS GIVEN PRN HYDRALIZINE. HE WAS GIVEN TORIDOL ONCE THIS SHIFT FOR PAIN. A&O X 4 AND INDEPENDANT IN THE ROOM. NPO AT MIDNIGHT FOR SECOND PART OF STRESS TEST TODAY. PT APPEARS TO HAVE RESTED COMFORTABLY THROUGHOUT THIS SHIFT. BED IN LOW POSITION AND CALL LIGHT IN REACH. WILL CONTINUE TO MONITOR.
[2023-10-27 05:08] VITALS: BP 153/101
[2023-10-27 07:34] VITALS: BP 155/79
[2023-10-27] MEDS ORDERED: Regadenoson 0.4 MG/5 ML SYRINGE ONE (08:01)
[2023-10-27] MEDS ORDERED: Caffeine Citrated 60 MG/3 ML Vial ONE (08:01)
[2023-10-27] MEDS ORDERED: Losartan Potassium 50 MG Tab PO SCH (09:00)
--- NOTE | 2023-10-27 16:24 | NUR ---
PATIENT D/C'D TO HOME WITH FAMILY. DC INSTRUCTIONS AND EDUCATION DISCUSSED WITH PATIENT AND COPY PROVIDED.RX MEDICATIONS FAXED TO [facility]. PATIENT DENIES ANY FURTHER QUESTIONS OR CONCERNS.
== END 2023-10-27 16:16 | disposition home or self-care (01) ==
LOC: ER 21:25 → PCU 21:26 → MEDS 10-26 11:58
PROVIDERS: Emergency Medicine; ADMIT Internal Medicine
DX: R07.89 Other chest pain (principal); I25.10 Atherosclerotic heart disease of native coronary artery without angina pectoris; I77.810 Thoracic aortic ectasia; I10 Essential (primary) hypertension; E78.5 Hyperlipidemia, unspecified; I49.5 Sick sinus syndrome; F41.9 Anxiety disorder, unspecified; Z79.82 Long term (current) use of aspirin; Z79.899 Other long term (current) drug therapy
CPT/HCPCS: 36415; 71045; 71260; 78452; 80053; 83880; 84484; 85025; 85520; 85610; 85730; 93005; 93010; 93017; 96374-59; 96375; 96375-59; 96376; 96376-59; 99285-25; A9270; A9500; G0378; J0360; J0706; J1170; J1644; J1650; J1885; J2785; J3010; J7030; Q9967

== ENCOUNTER 2024-02-12 12:00 | Emergency (ER) | payer OTHER ==
[~2024-02-12] VITALS: Ht 167.6 cm; Wt 63.5 kg
[~2024-02-12 12:00] MED LIST changes: +OXYC5
[2024-02-12 12:35] VITALS: BP 163/112
[2024-02-12 12:54] LABS: BASOPHILS ABSOLUTE AUTO 0.03 K/mm3 (0.00-0.23); BASOPHILS PERCENT AUTO 1 % (0-2); EOSINOPHILS ABSOLUTE AUTO 0.22 K/mm3 (0.00-0.68); EOSINOPHILS PERCENT AUTO 4 % (0-6); Hematocrit 41.1 % (37.0-53.0); Hemoglobin 13.5 g/dL (13.5-17.5); IMMATURE GRAN ABSOLUTE AUTO 0.01 K/mm3 (0.00-0.10); IMMATURE GRAN PERCENT AUTO 0 % (0-1); LYMPHOCYTES ABSOLUTE AUTO 1.21 K/mm3 (0.84-5.20); LYMPHOCYTES PERCENT AUTO 20 % (21-46); MONOCYTES ABSOLUTE AUTO 0.59 K/mm3 (0.16-1.47); MONOCYTES PERCENT AUTO 10 % (4-13); Mean Corpuscular HGB 29.7 pg (26.0-34.0); Mean Corpuscular HGB Conc 32.8 g/dL (31.5-36.5); Mean Corpuscular Volume 90 fL (80-100); Mean Platelet Volume 9.5 fL (9.1-12.4); NEUTROPHILS ABSOLUTE AUTO 3.95 K/mm3 (1.96-9.15); NEUTROPHILS PERCENT AUTO 66 % (41-73); Platelet Count 228 K/mm3 (150-400); RDW Coefficient Variation 14.3 % (11.7-14.2); RDW Standard Deviation 47.6 fL (35.1-46.3); Red Blood Cell Count 4.55 M/mm3 (4.30-5.90); White Blood Cell Count 6.01 K/mm3 (4.00-11.30)
[2024-02-12 13:14] LABS: Albumin, Blood 3.2 g/dL (3.4-5.0); Albumin/Globulin Ratio 0.8 (0.8-1.8); Bilirubin, Total 0.3 mg/dL (0.1-1.0); Calcium, Blood 8.9 mg/dL (8.5-10.1); Creatinine, Blood 0.8 mg/dL (0.60-1.20); Globulin, Blood 3.9 g/dL (2.2-4.0); Total Protein, Blood 7.1 g/dL (6.4-8.2)
[2024-02-12 18:11] LABS: CORONAVIRUS COVID-19 AG Negative (NEGATIVE); INFLUENZA A AG Negative (NEGATIVE); INFLUENZA B AG Negative (NEGATIVE)
[2024-02-12] MEDS ORDERED: AZIT250 PO (20:20)
[2024-02-12] MEDS ORDERED: Azithromycin 250 MG Tab PO ONE (20:25)
== END 2024-02-12 20:51 | disposition home or self-care (01) ==
LOC: ER 12:00
PROVIDERS: Physician Assistant; Student in an Organized Health Care Education/Training Program
DX: R05.9 Cough, unspecified (principal); E78.5 Hyperlipidemia, unspecified; G47.00 Insomnia, unspecified; I11.0 Hypertensive heart disease with heart failure; I50.9 Heart failure, unspecified; Z79.51 Long term (current) use of inhaled steroids; Z79.82 Long term (current) use of aspirin; Z79.899 Other long term (current) drug therapy; Z91.048 Other nonmedicinal substance allergy status
CPT/HCPCS: 71046; 71260; 80053; 83690; 83880; 84484; 85025; 85379; 87428-QW; 93005; 93010; 99284-25; A9270; Q9967

== ENCOUNTER 2024-03-26 15:51 | Emergency (ER) | payer OTHER ==
[~2024-03-26] VITALS: Ht 167.6 cm; Wt 63.5 kg
[~2024-03-26 15:51] MED LIST changes: +AZIT250 PO
[2024-03-26 16:14] VITALS: BP 111/61
[2024-03-26] MEDS ORDERED: Ketorolac Tromethamine 15mg Vial IM ONE (18:35)
[2024-03-26] MEDS ORDERED: OxyCODONE HCL 5 MG TAB PO ONE (18:35)
[2024-03-26] MEDS ORDERED: RX Prepack 6 Tabs Oxycodone 5mg UD ONE (18:35)
== END 2024-03-26 19:15 | disposition home or self-care (01) ==
LOC: ER 15:51
DX: S82.035A Nondisplaced transverse fracture of left patella, initial encounter for closed fracture (principal); W01.0XXA Fall on same level from slipping, tripping and stumbling without subsequent striking against object, initial encounter; I10 Essential (primary) hypertension; Z91.048 Other nonmedicinal substance allergy status; Z79.899 Other long term (current) drug therapy; Z79.82 Long term (current) use of aspirin
CPT/HCPCS: 73562-LT; 99283-25; A9270; J1885

== ENCOUNTER 2024-05-08 13:45 | Emergency (ER) | payer OTHER ==
[~2024-05-08] VITALS: Ht 167.6 cm; Wt 63.5 kg
[2024-05-08 15:07] LABS: BASOPHILS ABSOLUTE AUTO 0.03 K/mm3 (0.00-0.23); BASOPHILS PERCENT AUTO 0 % (0-2); EOSINOPHILS ABSOLUTE AUTO 0.18 K/mm3 (0.00-0.68); EOSINOPHILS PERCENT AUTO 3 % (0-6); Hematocrit 42.5 % (37.0-53.0); IMMATURE GRAN ABSOLUTE AUTO 0.03 K/mm3 (0.00-0.10); IMMATURE GRAN PERCENT AUTO 0 % (0-1); LYMPHOCYTES PERCENT AUTO 12 % (21-46); MONOCYTES ABSOLUTE AUTO 0.59 K/mm3 (0.16-1.47); MONOCYTES PERCENT AUTO 8 % (4-13); Mean Corpuscular HGB 29.9 pg (26.0-34.0); Mean Corpuscular HGB Conc 32.9 g/dL (31.5-36.5); Mean Corpuscular Volume 91 fL (80-100); Mean Platelet Volume 9.7 fL (9.1-12.4); NEUTROPHILS ABSOLUTE AUTO 5.52 K/mm3 (1.96-9.15); NEUTROPHILS PERCENT AUTO 76 % (41-73); Platelet Count 196 K/mm3 (150-400); RDW Coefficient Variation 14.9 % (11.7-14.2); RDW Standard Deviation 49.5 fL (35.1-46.3); Red Blood Cell Count 4.69 M/mm3 (4.30-5.90); White Blood Cell Count 7.25 K/mm3 (4.00-11.30)
[2024-05-08 15:33] LABS: Influenza A, PCR NEGATIVE (NEGATIVE); Influenza B, PCR NEGATIVE (NEGATIVE); Resp Syncytial Virus, PCR NEGATIVE (NEGATIVE); SARS-Cov-2 (COVID-19) PCR, MMC NEGATIVE (NEGATIVE)
[2024-05-08 15:40] LABS: Albumin, Blood 3.4 g/dL (3.4-5.0); Albumin/Globulin Ratio 0.9 (0.8-1.8); Bilirubin, Total 0.5 mg/dL (0.1-1.0); Bun/Creatinine Ratio 8.7 (12.0-20.0); Calcium, Blood 8.9 mg/dL (8.5-10.1); Creatinine, Blood 0.92 mg/dL (0.60-1.20); Globulin, Blood 3.9 g/dL (2.2-4.0); Potassium, Blood 4.1 mmol/L (3.5-5.5); Total Protein, Blood 7.3 g/dL (6.4-8.2)
[2024-05-08 20:17] VITALS: BP 134/91
== END 2024-05-08 20:17 | disposition home or self-care (01) ==
LOC: ER 13:45
PROVIDERS: Student in an Organized Health Care Education/Training Program
DX: J06.9 Acute upper respiratory infection, unspecified (principal); I11.0 Hypertensive heart disease with heart failure; E78.5 Hyperlipidemia, unspecified; I50.9 Heart failure, unspecified; Z91.09 Other allergy status, other than to drugs and biological substances; Z79.2 Long term (current) use of antibiotics; Z79.1 Long term (current) use of non-steroidal anti-inflammatories (NSAID); Z79.899 Other long term (current) drug therapy
CPT/HCPCS: 0241U; 71046; 80053; 83880; 84484; 85025; 93005; 93010; 99284-25

== ENCOUNTER 2024-05-12 20:08 | Emergency (ER) | payer OTHER ==
[~2024-05-12] VITALS: Ht 167.6 cm; Wt 68.0 kg
[2024-05-12 21:43] VITALS: BP 131/66
[2024-05-12] MEDS ORDERED: Azithromycin 250 MG Tab PO ONE (22:35)
[2024-05-12] MEDS ORDERED: Amoxicillin/Clavulanate K 875 MG Tab PO ONE (22:35)
[2024-05-12] MEDS ORDERED: Ipratropium/Albuterol SulF 2.5-0.5MG/3 ML Amp INH ONE (22:35)
[2024-05-12] MEDS ORDERED: AMOCLA875 PO (22:38)
[2024-05-12] MEDS ORDERED: AZIT250 PO (22:38)
== END 2024-05-12 23:38 | disposition home or self-care (01) ==
LOC: ER 20:08
DX: J18.9 Pneumonia, unspecified organism (principal); I25.10 Atherosclerotic heart disease of native coronary artery without angina pectoris; I11.0 Hypertensive heart disease with heart failure; I50.9 Heart failure, unspecified; E78.5 Hyperlipidemia, unspecified; N40.0 Benign prostatic hyperplasia without lower urinary tract symptoms; Z95.0 Presence of cardiac pacemaker; Z95.5 Presence of coronary angioplasty implant and graft; Z91.048 Other nonmedicinal substance allergy status; Z79.82 Long term (current) use of aspirin; Z79.899 Other long term (current) drug therapy; Z59.89 Other problems related to housing and economic circumstances
CPT/HCPCS: 71045; 93005; 93010; 94640; 94664; 99284-25; A9270

== ENCOUNTER → 2024-07-22 | Outpatient (CLI) | payer OTHER ==
[~2024-07-22] MED LIST changes: +CEFTRIAXONE2 G1 IV; +QUET25 PO
[2024-07-22 13:00] LABS: Body Fluid Crystals NEG (NEGATIVE)
[2024-07-22 13:08] LABS: BODY FLUID RBC 0.016 M/mm3 (0-0)
[2024-07-22 13:27] LABS: RBC Count, Synovial Fluid 16000 /mm3 (0-0); WBC Count, Synovial Fluid 132620 /mm3 (0-180)
[2024-07-22 13:37] LABS: Appearance, Synovial Fluid Turbid (Clear); Color, Synovial Fluid Yellow (None-P Yel)
[2024-07-22 14:12] LABS: Eos, Synovial Fluid 1 % (0-2); Monocytes/Macrophages, Synovia 6 % (0-65); Neutrophils, Synovial Fluid 93 % (0-24)
== END ==
LOC: LAB SHORT 12:27 → LAB 12:27
PROVIDERS: Nurse Practitioner
DX: S46.811D Strain of other muscles, fascia and tendons at shoulder and upper arm level, right arm, subsequent encounter (principal); Z98.890 Other specified postprocedural states; S46.111A Strain of muscle, fascia and tendon of long head of biceps, right arm, initial encounter
CPT/HCPCS: 87070; 87075; 87077; 87186; 87205; 89051; 89060

== ENCOUNTER 2024-07-31 00:38 | Day surgery (SDC) | payer OTHER ==
[~2024-07-31 00:38] MED LIST changes: -QUET25 PO
[2024-07-31] MEDS ORDERED: CefTRIAXone Sodium 2,000 MG in NS 100 ML IV SCH (01:00)
--- NOTE | 2024-07-31 15:49 | NUR ---
Pt is currently in the ER and will be admitted to the hospital this afternoon.
[2024-07-31] MEDS ORDERED: HYDROmorphone HCl/Pf 1MG SYR ONE (17:32)
[2024-08-01] MEDS ORDERED: QUET25 PO (11:38)
== END 2024-07-31 23:00 | disposition home or self-care (01) ==
LOC: ATC 00:38
DX: M00.811 Arthritis due to other bacteria, right shoulder (principal); I25.10 Atherosclerotic heart disease of native coronary artery without angina pectoris; I11.0 Hypertensive heart disease with heart failure; I50.9 Heart failure, unspecified; E78.5 Hyperlipidemia, unspecified; Z95.5 Presence of coronary angioplasty implant and graft; Z91.048 Other nonmedicinal substance allergy status; Z79.82 Long term (current) use of aspirin; Z79.899 Other long term (current) drug therapy
CPT/HCPCS: J1171

== ENCOUNTER 2024-08-12 16:34 | Inpatient (IN) | payer OTHER ==
[~2024-08-12] VITALS: Ht 167.6 cm; Wt 58.8 kg
[~2024-08-12 16:34] MED LIST changes: +MIRALAX17 GM PO; +QUET25 PO
[2024-08-12 18:31] LABS: BASOPHILS ABSOLUTE AUTO 0.04 K/mm3 (0.00-0.23); BASOPHILS PERCENT AUTO 1 % (0-2); EOSINOPHILS ABSOLUTE AUTO 0.10 K/mm3 (0.00-0.68); EOSINOPHILS PERCENT AUTO 1 % (0-6); Hematocrit 34.0 % (37.0-53.0); Hemoglobin 10.8 g/dL (13.5-17.5); IMMATURE GRAN ABSOLUTE AUTO 0.02 K/mm3 (0.00-0.10); IMMATURE GRAN PERCENT AUTO 0 % (0-1); LYMPHOCYTES ABSOLUTE AUTO 1.43 K/mm3 (0.84-5.20); LYMPHOCYTES PERCENT AUTO 19 % (21-46); MONOCYTES ABSOLUTE AUTO 0.67 K/mm3 (0.16-1.47); MONOCYTES PERCENT AUTO 9 % (4-13); Mean Corpuscular HGB Conc 31.8 g/dL (31.5-36.5); Mean Corpuscular Volume 88 fL (80-100); NEUTROPHILS ABSOLUTE AUTO 5.12 K/mm3 (1.96-9.15); NEUTROPHILS PERCENT AUTO 69 % (41-73); NRBC ABSOLUTE 0.00 K/mm3 (0.00-0.02); NRBC Auto 0.0 /100 WBC (0.0-0.2); Platelet Count 522 K/mm3 (150-400); RDW Coefficient Variation 16.8 % (11.7-14.2); RDW Standard Deviation 54.1 fL (35.1-46.3)
[2024-08-12 18:56] LABS: Alanine Aminotransfer (ALT/SGP 49.0 U/L (12-78); Albumin, Blood 2.4 g/dL (3.4-5.0); Albumin/Globulin Ratio 0.4 (0.8-1.8); Anion Gap 7.0 mmol/L (3-11); Aspartate Aminotrans (AST/SGOT 37.0 U/L (12-37); Bilirubin, Total 0.2 mg/dL (0.1-1.0); Blood Urea Nitrogen 10.0 mg/dL (8-24); CO2, Blood 29.0 mmol/L (21-32); Calcium, Blood 9.1 mg/dL (8.5-10.1); Chloride, Blood 105.0 mmol/L (98-108); Creatinine, Blood 0.79 mg/dL (0.60-1.20); Globulin, Blood 5.6 g/dL (2.2-4.0); Glucose, Blood 95.0 mg/dL (70-99); Potassium, Blood 3.7 mmol/L (3.5-5.5); Sodium, Blood 137.0 mmol/L (136-145); Total Protein, Blood 8.0 g/dL (6.4-8.2)
[2024-08-12] MEDS ORDERED: CefTRIAXone Sodium 1,000 MG in NS 100 ML IV ONE (20:20)
[2024-08-12] MEDS ORDERED: HYDROmorphone HCl/Pf 1MG SYR IV PRN (21:10)
[2024-08-12] MEDS ORDERED: Polyethylene Glycol 3350 17 gm PO PRN (21:15)
[2024-08-12 22:46] VITALS: BP 163/89
[2024-08-12] MEDS ORDERED: NITR.4SL SL ×2 (23:10)
[2024-08-13] VITALS (16 sets, daily range): BP systolic 117–162; BP diastolic 62–93
--- NOTE | 2024-08-13 | NUR ---
ARRIVAL TO SURGICAL UNIT ROOM 227 FROM ER. PT ARRIVED FROM ER VIA WHEEL CHAIR AT 2239. PT ORIENTED TO ROOM AND CALL LIGHT. DISCUSSED SMOKING AND UNIT POLICIES. THC/CBD VAPE PEN PLACED IN LOCKED DRAWER WITH PT LABEL. PT A/O X4. RIGHT SHOULDER IN SLING WITH DRAIN PATENT, DRESSING C/D/I. CALL LIGHT IN REACH.
[2024-08-13] MEDS ORDERED: Fluticasone 0.05% Nasal Spray PRN (03:05)
[2024-08-13] MEDS ORDERED: OxyCODONE 5 mg/Acetamin 325 mg TABLET PO PRN (03:10)
--- NOTE | 2024-08-13 03:30 | NUR ---
CALL TO HOSPITALIST. CLARIFICATION FOR ORDERS. NEW ORDERS RECEIVED FOR SCDS, TELEMETRY, AND NPO STATUS UNTIL ORTHO CONSULT. DR. WYNN TO REVIEW AND PLACE ORDERS FOR MED REQ.
[2024-08-13 04:58] LABS: Hematocrit 30.1 % (37.0-53.0); Hemoglobin 9.6 g/dL (13.5-17.5); Mean Corpuscular HGB Conc 31.9 g/dL (31.5-36.5); Mean Corpuscular Volume 88 fL (80-100); NRBC ABSOLUTE 0.00 K/mm3 (0.00-0.02); NRBC Auto 0.0 /100 WBC (0.0-0.2); Platelet Count 425 K/mm3 (150-400); RDW Coefficient Variation 16.7 % (11.7-14.2); RDW Standard Deviation 53.5 fL (35.1-46.3)
[2024-08-13 05:13] LABS: Albumin, Blood 2.0 g/dL (3.4-5.0); Anion Gap 8 mmol/L (3-11); Blood Urea Nitrogen 8 mg/dL (8-24); CO2, Blood 27 mmol/L (21-32); Calcium, Blood 8.1 mg/dL (8.5-10.1); Chloride, Blood 106 mmol/L (98-108); Creatinine, Blood 0.76 mg/dL (0.60-1.20); Glucose, Blood 89 mg/dL (70-99); Magnesium, Blood 2.1 mg/dL (1.6-2.4); Phosphorus, Blood 3.2 mg/dL (2.5-4.9); Potassium, Blood 3.3 mmol/L (3.5-5.5); Sodium, Blood 138 mmol/L (136-145)
--- NOTE | 2024-08-13 06:55 | NUR ---
IMAGING: DR CAIN CALLED ORDERING STAR MRI OF RIGHT SHOULDER. PER IMAGING DEPT, MRI UNABLE TO BE COMPLETED R/T PT PACEMAKER. DR CAIN NOTIFIED, NEW ORDER FOR CT PLACED.
--- NOTE | 2024-08-13 07:32 | NUR ---
PT TO CT.
--- NOTE | 2024-08-13 07:49 | NUR ---
BACK TO FROM CT. RESTING IN BED. CALL LIGHT IN REACH.
[2024-08-13] MEDS ORDERED: NS 250 ML IV PRN (07:55)
--- NOTE | 2024-08-13 08:27 | NUR ---
SHIFT SUMMARY NOC. PT ADMIT THIS SHIFT FOR SEPTIC ARTHRITIS OF RIGHT SHOULDER. PT PAINFUL UPON ADMIT AND MEDICATED WITH IV DILAUDID. PT SBA D/T HX OF FALLS, BED ALARM SET FOR SAFETY. PT MADE NPO FOR POSSIBLE PROCEDURE, WILL AWAIT SURGICAL CONSULT. TELEMETRY SET UP THIS SHIFT, PT HAD EVENTS OF BRADYCARDIA ON CONT BIOX OF HR IN THE MID 40S PRIOR TO TELE, PROVIDER NOTIFIED. PT DENIES SOB OR CHEST PAIN. PT VOIDING URINE. CALL LIGHT IN REACH.
[2024-08-13] MEDS ORDERED: Enoxaparin 40 MG/0.4 ML SYR SC SCH (09:00)
[2024-08-13] MEDS ORDERED: Lactobacil 2-S.Thermo-Bifido 1 1 Cap PO SCH (09:00)
[2024-08-13] MEDS ORDERED: CefTRIAXone Sodium 2,000 MG in NS 100 ML IV SCH (09:00)
--- NOTE | 2024-08-13 10:16 | NUR ---
SPOKE TO DR BACK AT 1005, INSTRUCTED TO KEEP PT NPO.
--- NOTE | 2024-08-13 11:00 | NUR ---
DR BECK IN TO SEE PT.
--- NOTE | 2024-08-13 11:39 | NUR ---
PT TO SURGERY
--- NOTE | 2024-08-13 12:02 | NUR ---
PT INTO SDS VIA [facility] FOR I+D OF RIGHT SHOULDER. Patient confirms NPO status and agrees with scheduled surgery. Pre-Op teaching done. Pt verbalizes understanding. History, Chart, Medications and Allergies reviewed before start of procedure.
[2024-08-13] MEDS ORDERED: NITRO-DUR1 EACH TOP ×2 (12:09)
[2024-08-13] MEDS ORDERED: Rocuronium Bromide 10 MG/ML 5ML Injection IV ONE (12:11)
[2024-08-13] MEDS ORDERED: Metoclopramide HCl 5MG / ML 2ML Vial ONE (12:11)
[2024-08-13] MEDS ORDERED: Ondansetron HCl 2 MG / ML 2ML Vial ONE (12:11)
[2024-08-13] MEDS ORDERED: FentaNYL Citrate 50 MCG/ML 5 ML Injection ONE (12:12)
[2024-08-13] MEDS ORDERED: Sugammadex Sodium 200 MG/2ML SDV (100 MG/ML) ONE (13:00)
[2024-08-13] MEDS ORDERED: FentaNYL Citrate 50 MCG/ML 2 ML Injection IV PRN (13:25)
[2024-08-13] MEDS ORDERED: Ondansetron HCl 2 MG / ML 2ML Vial IV PRN (13:25)
[2024-08-13] MEDS ORDERED: Dexamethasone Sodium Phosphate 4 MG/ML 5ML VIAL IV PRN (13:25)
[2024-08-13] MEDS ORDERED: ePHEDrine Sulfate 50 MG/ML 1ML Injection IV PRN (13:25)
[2024-08-13] MEDS ORDERED: Albuterol 2.5 MG/3 ML VIAL INH PRN (13:30)
[2024-08-13] MEDS ORDERED: HYDROmorphone HCl/Pf 1MG SYR IV PRN ×2 (13:30)
[2024-08-13] MEDS ORDERED: Labetalol HCL 5 MG/ML 4ML Injection (Single Dose) IV PRN (13:30)
--- NOTE | 2024-08-13 13:48 | NUR ---
DR BACK REQUESTED ID CONSULT; NOTIFIED DR BECK.
--- NOTE | 2024-08-13 14:19 | NUR ---
PT ARRIVED BACK TO RM 227 FROM PACU. A&OX4. PAIN TOLERABLE. VSS. CALL LIGHT IN REACH. BED ALARM ON FOR SAFETY. BULKY DRESSING TO R SHOULDER CDI. HEMOVAC COMPRESSED W/SANGUINEOUS DRAINAGE NOTED.
--- NOTE | 2024-08-13 19:20 | NUR ---
SUMMARY NO ACUTE CHANGES SINCE ARRIVING BACK TO UNIT FROM PACU. MEDICATED THIS EVENING FOR PAIN. REPORTS STILL 07/29. HEMOVAC COMPRESSED. BULKY DRESSING CDI. CALL LIGHT IN REACH.
[2024-08-13] MEDS ORDERED: Docusate Sodium/Senna 1 Tab PO SCH (21:00)
--- NOTE | 2024-08-14 04:17 | NUR ---
SHIFT SUMMARY NOC. PT POD 1 FOR REPEAT I&D FOR SEPTIC RIGHT SHOULDER. PT'S DRESSING C/D/I WITH HEMOVAC IN PLACE AND PATENT DRAINING SANGUINEIOUS FLUID. PT MEDICATED FOR PAIN WITH REPORTED RELIEF OF SX. PT VOIDING URINE. TELEMETRY INTACT WITH NO REPORTED EVENTS. PT MEDICATED FOR ANXIETY X1 WITH REPORTED RELIEF. PT MAKES NEEDS KNOWN, CALL LIGHT IN REACH.
[2024-08-14 05:12] VITALS: BP 134/78
[2024-08-14 06:54] VITALS: BP 133/73
[2024-08-14 15:46] VITALS: BP 141/84
--- NOTE | 2024-08-14 18:23 | NUR ---
SHIFT SUMMARY NO ACUTE CHNGES THIS SHIFT. VSS. HEMOVAC CONTINUES TO R SHOULDER - 40ML SANGUINOUS DRAINAGE TODAY. BULK DRESSING CDI. PERSISTENT PAIN CONTINUES PER PT. SEE EMAR. PT FORGETFUL AT TIMES - BED ALARM IN PLACE. EDUCATED ABOUT POTENTIAL FOR I&D TOMORROW - PT AWARE BUT UPSET HE HAS HAD THIS SURGERY "SO MANY TIMES NOW". OTHERWISE, SIGNIFICANT OTHER IN ROOM TOWARDS END OF SHIFT. PT USING CALL LIGHT APPROPRIATELY.
[2024-08-14 19:10] VITALS: BP 123/74
[2024-08-14 22:41] VITALS: BP 152/76
[2024-08-15] VITALS (17 sets, daily range): BP systolic 117–176; BP diastolic 56–115
[2024-08-15 04:57] LABS: Hematocrit 30.0 % (37.0-53.0); Hemoglobin 9.4 g/dL (13.5-17.5); Mean Corpuscular HGB Conc 31.3 g/dL (31.5-36.5); Mean Corpuscular Volume 88 fL (80-100); NRBC ABSOLUTE 0.00 K/mm3 (0.00-0.02); NRBC Auto 0.0 /100 WBC (0.0-0.2); Platelet Count 410 K/mm3 (150-400); RDW Coefficient Variation 16.6 % (11.7-14.2); RDW Standard Deviation 53.4 fL (35.1-46.3)
[2024-08-15 06:09] LABS: Anion Gap 7.0 mmol/L (3-11); Blood Urea Nitrogen 8.0 mg/dL (8-24); CO2, Blood 29.0 mmol/L (21-32); Calcium, Blood 8.2 mg/dL (8.5-10.1); Chloride, Blood 106.0 mmol/L (98-108); Creatinine, Blood 0.78 mg/dL (0.60-1.20); Glucose, Blood 117.0 mg/dL (70-99); Potassium, Blood 3.5 mmol/L (3.5-5.5); Sodium, Blood 138.0 mmol/L (136-145)
--- NOTE | 2024-08-15 06:58 | NUR ---
SHIFT SUMMARY NOC. PT POD 2 FOR I&D OF RIGHT SHOULDER. BULKY DRESSING TO R SHOULDER C/D/I WITH PATENT COMPRESSED HEMOVAC. PT MEDICATED FOR PAIN WITH ORAL AND IV MEDICATION FOR BREAKTHROUGH. PT MEDICATED FOR ANXIETY THIS SHIFT WITH REPORTED RELIEF. PT NPO SINCE 0000 ASIDE FROM A SIP FOR ANXIETY MED AND ORAL PAIN MED. PT MAKES NEEDS KNOWN, CALL LIGHT IN REACH.
--- NOTE | 2024-08-15 09:11 | NUR ---
PT TO SURGERY 0830. PREPROCEDURE INFECTION PACK COMPLETED. PT NPO EXCEPT FOR ESSENTIAL MEDS - OK'D BY SURGICAL NURSE WHEN CALLED TO UPDATE REGARDING CHANGED SURGERY TIME.
[2024-08-15] MEDS ORDERED: Bupivacaine 0.5% HCl 5 MG/ML 30MLVIAL ONE (09:14)
--- NOTE | 2024-08-15 09:15 | NUR ---
TO [facility] FOR I&D OF RIGHT SHOULDER. PT HAS HAD PROCEDURE MANY TIMES. A/O X 3. History, Chart, Medications and Allergies reviewed before start of procedure. Patient confirms NPO status and agrees with scheduled surgery. Pre-Op teaching done. Pt verbalizes understanding. CHLORHEXIDINE BATH AT BEDSIDE. NOZIN NASAL SWAB COMPLETED.
[2024-08-15] MEDS ORDERED: Etomidate 2MG / ML 10ML Vial ONE (09:38)
[2024-08-15] MEDS ORDERED: FentaNYL Citrate 50 MCG/ML 2 ML Injection ONE (09:39)
[2024-08-15] MEDS ORDERED: Dexamethasone Sod Phos 10 MG/ML 1ML VIAL ONE ×2 (09:48→10:03)
[2024-08-15] MEDS ORDERED: Ondansetron HCl 2 MG / ML 2ML Vial ONE ×2 (09:48→10:03)
[2024-08-15] MEDS ORDERED: Phenylephrine HCl 10mg/ml 1 ml Vial ONE ×2 (09:51→10:05)
[2024-08-15] MEDS ORDERED: Phenylephrine HCl 100 MCG/ML-NS 10MLSYR (1MG/10ML) ONE (10:04)
[2024-08-15] MEDS ORDERED: Rocuronium Bromide 10 MG/ML 5ML Injection IV ONE (10:04)
[2024-08-15] MEDS ORDERED: Sugammadex Sodium 200 MG/2ML SDV (100 MG/ML) ONE (10:29)
[2024-08-15] MEDS ORDERED: FentaNYL Citrate 50 MCG/ML 2 ML Injection IV PRN ×2 (10:35→10:40)
[2024-08-15] MEDS ORDERED: Morphine Sulfate 4 MG/1 ML Injection IV PRN (10:35)
[2024-08-15] MEDS ORDERED: Ondansetron HCl 2 MG / ML 2ML Vial IV PRN (10:40)
[2024-08-15] MEDS ORDERED: Metoclopramide HCl 5MG / ML 2ML Vial IV PRN (10:40)
[2024-08-15] MEDS ORDERED: HYDROmorphone HCl/Pf 1MG SYR IV PRN (10:40)
[2024-08-15] MEDS ORDERED: HYDROmorphone HCl/Pf 1MG SYR ONE (11:07)
--- NOTE | 2024-08-15 13:07 | NUR ---
ARRIVED TO UNIT @1137 PT AXO4 - RESTING. SLID OVER INTO BED. VSS. POSTOP VOID COMPLETED. PT HUNGRY - FOOD TRAY DELIVERED. REPORTING PAIN BUT TOLERABLE TO R SHOULDER - PULLING MEDS PER EMAR FOR PAIN MANAGEMENT. HEMOVAC REMAINS TO R SHOULDER, CONTINUES WITH SANGUINOUS OUTPUT. BULK DRESSING PRESENT. SENSATION INTACT TO LIMB. DISTAL RADIAL PULSES PRESENT. ARM IN SLING.
--- NOTE | 2024-08-15 18:32 | NUR ---
SHIFT SUMMARY PT AXO4. HEMOVAC STABLE TO R SHOULDER T/O SHIFT. PT TO SURGERY FOR REPEAT I&D, RETURNED STABLE WITH VSS. HEMOVAC REMAINS. ARM NOW IN SLING - NWB. PAIN BEING CONTROLLED CURRENTLY WITH PO MEDS. PT HAD EPISODE OF ST ELEVATION ON TELEMETRY - EKG PERFORMED - REVIEWED WITH CHARGE AND PCU OPERATIONS CLERK, NO ELEVATION NOTED TO EKG - BUNDLE BRANCH PRESENT, DR BECK UPDATED, EKG PLACED IN CHART, NO NEW ORDERS. PT DENIED CP/PRESSURE T/O ENTIREITY OF SHIFT. OTHERWISE, PT USING CALL LIGHT APPROPRIATELY. UP INTO BATHROOM, W/O COMPLICATIONS THIS SHIFT MULTIPLE TIMES. CALL LIGHT WITHIN REACH.
[2024-08-16 00:08] VITALS: BP 120/71
[2024-08-16 04:52] VITALS: BP 143/96
--- NOTE | 2024-08-16 06:40 | NUR ---
SHIFT SUMMARY AOX4. VSS. TELE NSR HR 70. POD 1-I&D R SHOULDER, THIS WAS PTS 6TH I&D. PRESSURE TAPE OVER SHOULDER & HEMOVAC IN PLACE. MIN AMOUNT SANGUINOUS DRAINAGE NOTED. REPORTS 08/28 PAIN TO R SHOULDER, MEDICATED W/2 OXYCODONE 1x & 0.5MG IV DILAUDID. PT STATES PAIN LEVEL IS MUCH BETTER & IT WAS THE BEST DAY HE'S HAD. CALL LIGHT IN REACH.
[2024-08-16 07:30] VITALS: BP 128/72
--- NOTE | 2024-08-16 11:14 | NUR ---
MORNING NOTE THIS RN ASSUMED CARE AT APPROX 0715. PATIENT ALERT AND ORIENTED X4. INDEPENDENT IN ROOM - CALLS APPROPRIATELY FOR ASSISTANCE PRN. VSS. TELEMETRY SHOWING A PACED/SR. DENIES CHEST PAIN, PRESSURE. SBP 120s. MAP >65. ON ROOM AIR, SATs >90%. DENIES SOB. POD 1 I/D OF R SHOULDER. MD DANIELLE AT BEDSIDE THIS MORNING - DRESSING TO R SHOULDER CHANGED. C/D/I. HEMOVAC PATENT W/ MINIMAL SANGUINOUS DRAINAGE. MANAGING PAIN PER EMAR. NWB RUE. TOLERATING REGULAR DIET. CALL LIGHT IN REACH.
[2024-08-16 15:12] VITALS: BP 124/72
--- NOTE | 2024-08-16 16:34 | NUR ---
SHIFT SUMMARY NO ACUTE CHANGES SINCE MORNING NOTE. REMAINS ALERT AND ORIENTED X4. INDEPENDENT IN ROOM. VSS. NO EVENTS REPORTED BY TELEMETRY. POD 1 I/D OF R SHOULDER - DRESSING C/D/I. HEMOVAC DRAIN W/ MINIMAL SANGUINOUS DRAINAGE. MANAGING PAIN PER EMAR. TOLERATING PO INTAKE. VOIDING. CALL LIGHT IN REACH.
[2024-08-16 19:28] VITALS: BP 137/75
--- NOTE | 2024-08-16 22:35 | NUR ---
TELE COMMUNICATION PER DAY MAURISIO Perdomo REPORT, PT HAD 11B RUN V.TACH & PT WAS ASYMPTOMATIC. INFORMED CONTENT STRATEGY LEADMAURISIO Vizcaino & TELE STRIP WAS REVIEWED, VSS, NO CP/PRESSURE, NO DYSPNEA, WILL CONT TO MONITOR & NOTIFY PROVIDER IF ANOTHER V.TACH RUN OCCURS. APPROX 0 AIRCRAFT ELECTRICAL SYSTEMS SPECIALIST INFORMED THIS RN PT HAD 9 SEC SVT & THEN CONVERTED BACK TO ATRIAL PACED @62. ASSESSED PT & HE DENIED CP/PRESSURE. STATES HE HAS A HX OF INCREASED HR & IT ONLY BECOMES A PROBLEM IF HR STAYS INCREASED. INFORMED TALYA Vizcaino CONTENT STRATEGY LEAD & DR MARINO OF IRREGULAR TELE CHANGES. JAMILA ORDERED AM LABS & OT DOSE PO POTASSIUM.
[2024-08-16 23:32] VITALS: BP 149/91
[2024-08-17 03:57] VITALS: BP 149/92
[2024-08-17 06:28] LABS: Anion Gap 5.0 mmol/L (3-11); Blood Urea Nitrogen 11.0 mg/dL (8-24); CO2, Blood 32.0 mmol/L (21-32); Calcium, Blood 8.7 mg/dL (8.5-10.1); Chloride, Blood 105.0 mmol/L (98-108); Creatinine, Blood 0.81 mg/dL (0.60-1.20); Glucose, Blood 89.0 mg/dL (70-99); Magnesium, Blood 1.9 mg/dL (1.6-2.4); Potassium, Blood 4.1 mmol/L (3.5-5.5); Sodium, Blood 138.0 mmol/L (136-145)
--- NOTE | 2024-08-17 06:30 | NUR ---
SHIFT SUMMARY AOX4. VSS. READ PREVIOUS NOTED REGARDING TELE, NO FURTHER IRREGULAR TELE RHYTHMS-LABS WNL. POD 2-I&D R SHOULDER. HEMOVAC IN PLACE W/10ML SEROSANGUNIOUS DRAINAGE EMPTIED. REPORTS 9/10 PAIN TO R SHOULDER, MEDICATED W/0.5MG IV DILAUDID & PT ABLE TO REST COMFORTABLY. PT ALSO REPORTING FEELING ANXIOUS & MEDICATED W/PRN KLONOPIN. IND W/URINAL. CALL LIGHT IN REACH & PT ABLE TO MAKE NEEDS KNOWN.
[2024-08-17 07:16] VITALS: BP 156/88
--- NOTE | 2024-08-17 09:43 | NUR ---
DR DANIELLE IN ROOM, DRAIN REMOVED AND NEW BULKY DRESSING APPLIED. PT WITH C/O SORE THROAT AND COLD SORE TO UPPER LIP, PRIMARY RN NOTIFIED.
[2024-08-17 11:41] VITALS: BP 135/82
[2024-08-17 15:03] VITALS: BP 121/76
--- NOTE | 2024-08-17 16:27 | NUR ---
SHIFT SUMMARY NO ACUTE EVENTS THIS SHIFT. PATIENT ALERT AND ORIENTED X4. COMMUNICATES NEEDS EFFECTIVELY. INDEPENDENT IN ROOM - CALLS APPROPRIATE FOR ASSISTANCE PRN. VSS. TELEMETRY SHOWING SINUS - NO EVENTS REPORTED BY BOUNTY HUNTER. SBP 120s-130s. MAP >65. REMAINS ON ROOM AIR, SATs >90%. POD 2 I/D R SHOULDER. MANAGING PAIN PER EMAR. MD DANIELLE AT BEDSIDE THIS MORNING - HEMOVAC DRAIN REMOVED AND DRESSING CHANGED. REMAINS C/D/I. TOLERATING PO INTAKE. VOIDING. CALL LIGHT IN REACH.
[2024-08-17 19:37] VITALS: BP 132/68
[2024-08-18] VITALS (7 sets, daily range): BP systolic 119–176; BP diastolic 63–91
--- NOTE | 2024-08-18 04:26 | NUR ---
SHIFT SUMMARY POD 3 I&D R SHOULDER. NO ACUTE CHANGES OVERNIGHT. A&O x4, USES CALL LIGHT APPROPRIATELY. VSS, TELE IN USE. TOLERATING DIET. PRESSURE DRESSING C/D/I. PT REPORTS PAIN TOLERABLE, MEDICATED PER EMAR. VOIDING. CALL LIGHT IN REACH, BED IN LOWEST POSITION, WILL REPORT TO DAY RN.
--- NOTE | 2024-08-18 17:25 | NUR ---
SHIFT NOTE: PT HAD I&D ON THE , WOUND CARE DONE PER ORDERS. MD AT BEDSIDE TO VISUALIZE INCISION. PT A/OX4 USING CALL LIGHT APPROPRIATELY TO MAKE NEEDS KNOWN. VSS, NO ACUTE CHANGES ON TELE. HE IS TOLERATING PO INTAKE. CALL LIGHT IN REACH, CARE CONTINUES
[2024-08-19 03:49] VITALS: BP 125/74
--- NOTE | 2024-08-19 04:19 | NUR ---
SHIFT SUMMARY POD 4 I&D R SHOULDER. NO ACUTE CHANGES OVERNIGHT. A&O x4, USES CALL LIGHT APPROPRIATELY. VSS, TELE IN USE, NO EVENTS THIS SHIFT. TOLERATING DIET. PRESSURE DRESSING C/D/I, PT USING SLING TOLERATED FOR COMFORT. PT REPORTS PAIN TOLERABLE, MEDICATED PER EMAR. VOIDING. CALL LIGHT IN REACH, BED IN LOWEST POSITION, WILL REPORT TO DAY RN.
[2024-08-19 06:22] LABS: BASOPHILS ABSOLUTE AUTO 0.04 K/mm3 (0.00-0.23); BASOPHILS PERCENT AUTO 0 % (0-2); EOSINOPHILS ABSOLUTE AUTO 0.27 K/mm3 (0.00-0.68); EOSINOPHILS PERCENT AUTO 3 % (0-6); Hematocrit 34.0 % (37.0-53.0); Hemoglobin 10.6 g/dL (13.5-17.5); IMMATURE GRAN ABSOLUTE AUTO 0.03 K/mm3 (0.00-0.10); IMMATURE GRAN PERCENT AUTO 0 % (0-1); LYMPHOCYTES ABSOLUTE AUTO 1.57 K/mm3 (0.84-5.20); LYMPHOCYTES PERCENT AUTO 18 % (21-46); MONOCYTES ABSOLUTE AUTO 0.86 K/mm3 (0.16-1.47); MONOCYTES PERCENT AUTO 10 % (4-13); Mean Corpuscular HGB Conc 31.2 g/dL (31.5-36.5); Mean Corpuscular Volume 88 fL (80-100); NEUTROPHILS ABSOLUTE AUTO 6.13 K/mm3 (1.96-9.15); NEUTROPHILS PERCENT AUTO 69 % (41-73); NRBC ABSOLUTE 0.00 K/mm3 (0.00-0.02); NRBC Auto 0.0 /100 WBC (0.0-0.2); Platelet Count 428 K/mm3 (150-400); RDW Coefficient Variation 16.8 % (11.7-14.2); RDW Standard Deviation 54.4 fL (35.1-46.3)
[2024-08-19 07:10] VITALS: BP 136/84
--- NOTE | 2024-08-19 10:57 | NUR ---
THIS SOLE LEVELING MACHINE OPERATOR OFFERED A WALK WITH PATIENT AFTER SHOWER.PATIENT DECLINED A WALK AND REQUESTED TO GO BACK TO BED.SCDS PLACED.ENCOURAGED PATIENT TO GET UP AT MEAL TIMES.
--- NOTE | 2024-08-19 14:55 | NUR ---
Pt. is awake in bed and welcomes my visit. Pt. is pleasant. Facilitated a life review and consider matters of jay and belief. Listen with empathy and interest. Pt. dislpayed evidence of alertness and engagement. Prayed with the Pt. Pt. verbalized gratitude for the spiritual care visit. Pt. verbalized that his shoulder was hurting pretty badly. This residential therapist affirmed the nursing staff.
--- NOTE | 2024-08-19 14:57 | NUR ---
changed dressing to r shoulder per orders. asked pt to get up in chair, stated he already had. pt stated felt slightly nauseated. asked if was passing flatus he said no but had bm. advised pt he should walk. pt states tired right now.
[2024-08-19 15:06] VITALS: BP 137/82
--- NOTE | 2024-08-19 17:16 | NUR ---
SUMMARY NO ACUTE CHANGES T/O SHIFT. PT SHOWERED TODAY. REPORTED SAT UP IN CHAIR. DECLINED WORKING WITH OCCUPATIONAL THERAPY AND DECLINED AMBULATING. EDUCATED ON IMPORTANCE OF WORKING WITH THERAPY AND AMBULATING TO MAINTAIN STRENGTH. MEDICATED THIS AFTERNOON FOR PAIN PER ORDERS. DRESSING CHANGED THIS AFTERNOON PER ORDERS. CALL LIGHT IN REACH.
[2024-08-19 20:32] VITALS: BP 143/82
--- NOTE | 2024-08-19 22:34 | NUR ---
REPORT GIVEN TO NATHALY Barfield RN.
[2024-08-19 22:56] VITALS: BP 124/74
--- NOTE | 2024-08-19 23:02 | NUR ---
ASSUMED CARE OF PT. PT AWAKE IN BED, DENIES NEEDS, NO SS/X DISTRESS NOTED. WILL MONITOR AND TX PER ORDERS.
[2024-08-20 02:48] VITALS: BP 132/76
[2024-08-20 05:08] LABS: BASOPHILS ABSOLUTE AUTO 0.03 K/mm3 (0.00-0.23); BASOPHILS PERCENT AUTO 0 % (0-2); EOSINOPHILS ABSOLUTE AUTO 0.20 K/mm3 (0.00-0.68); EOSINOPHILS PERCENT AUTO 3 % (0-6); Hematocrit 34.0 % (37.0-53.0); Hemoglobin 10.6 g/dL (13.5-17.5); IMMATURE GRAN ABSOLUTE AUTO 0.02 K/mm3 (0.00-0.10); IMMATURE GRAN PERCENT AUTO 0 % (0-1); LYMPHOCYTES ABSOLUTE AUTO 1.50 K/mm3 (0.84-5.20); LYMPHOCYTES PERCENT AUTO 22 % (21-46); MONOCYTES ABSOLUTE AUTO 0.76 K/mm3 (0.16-1.47); MONOCYTES PERCENT AUTO 11 % (4-13); Mean Corpuscular HGB Conc 31.2 g/dL (31.5-36.5); Mean Corpuscular Volume 88 fL (80-100); NEUTROPHILS ABSOLUTE AUTO 4.40 K/mm3 (1.96-9.15); NEUTROPHILS PERCENT AUTO 64 % (41-73); NRBC ABSOLUTE 0.00 K/mm3 (0.00-0.02); NRBC Auto 0.0 /100 WBC (0.0-0.2); Platelet Count 391 K/mm3 (150-400); RDW Coefficient Variation 16.9 % (11.7-14.2); RDW Standard Deviation 54.7 fL (35.1-46.3)
--- NOTE | 2024-08-20 06:39 | NUR ---
PT VSS T/O NIGHT; HR SINUS W/BBB PER TELE MONITOR. DRESSIGN TO LEFT SHOULDER CDI, SLING IN PLACE. PT CONT TO RPE NUMBNESS TO RIGHT THUMB. PAIN MGD PER EMAR W/REP RELIEF. PT ENC TO MOBILIZE DAVID. PLAN TO CONT ABX AND AWAIT DC PLANNING.
[2024-08-20 08:08] VITALS: BP 147/90
[2024-08-20] MEDS ORDERED: Percocet 5-3251 EACH PO ×2 (13:50)
[2024-08-20] MEDS ORDERED: SENN187 PO ×2 (13:51)
[2024-08-20 14:54] VITALS: BP 142/63
--- NOTE | 2024-08-20 17:58 | NUR ---
DISCHARGE: PACKET PRINTED AND PT EDUCATED. SCRIPTS SENT TO [facility]. PT LEFT UNIT WITH POWERGLIDE, ATC PLANS TO REMOVE AND REPLACE POWERGLIDE ON August DURING INFUSION VISIT. PT ALSO GIVEN SUPPLIES FOR DAILY DRESSING CHANGES, PER DR. BACK. DRESSING AT R SHOULDER AND POWERGLIDE DRESSING CHANGED BEFORE DC BY MAURISIO FORDE.
== END 2024-08-20 17:45 | disposition home or self-care (01) | DRG 478 ==
LOC: ER 16:34 → SURS 21:06
PROVIDERS: Internal Medicine; Student in an Organized Health Care Education/Training Program; ADMIT Internal Medicine
PROC: 0PBC0ZX Excision of Right Humeral Head, Open Approach, Diagnostic (ICD-10-PCS; principal; 2024-08-19)
DX: M00.211 Other streptococcal arthritis, right shoulder (principal); E44.0 Moderate protein-calorie malnutrition; Z68.1 Body mass index [BMI] 19.9 or less, adult; I25.10 Atherosclerotic heart disease of native coronary artery without angina pectoris; B95.4 Other streptococcus as the cause of diseases classified elsewhere; E78.5 Hyperlipidemia, unspecified; G47.00 Insomnia, unspecified; N40.0 Benign prostatic hyperplasia without lower urinary tract symptoms; I11.0 Hypertensive heart disease with heart failure; I50.9 Heart failure, unspecified; M54.50 Low back pain, unspecified; G89.29 Other chronic pain; E87.6 Hypokalemia; F12.90 Cannabis use, unspecified, uncomplicated; F32.A Depression, unspecified; F41.0 Panic disorder [episodic paroxysmal anxiety]; Z87.442 Personal history of urinary calculi; Z79.51 Long term (current) use of inhaled steroids; Z79.899 Other long term (current) drug therapy; Z79.891 Long term (current) use of opiate analgesic; Z95.0 Presence of cardiac pacemaker; Z95.5 Presence of coronary angioplasty implant and graft; Z90.89 Acquired absence of other organs; Z98.890 Other specified postprocedural states; Z98.1 Arthrodesis status
CPT/HCPCS: 36415; 71045; 73030; 73201; 80048; 80053; 80069; 83605; 83735; 84484; 85025; 85027; 85651; 86140; 86850; 86900; 86901; 87040; 87070; 87071; 87075; 87205; 88305; 88311; 93005; 93010; 94760; 96365; 97110; 97165; 97530; 97535; 99284-25; A9270; J0696; J1100; J1171; J1650; J2371; J2405; J2704; J2765; J3010; J7050; J7120; Q9967

== ENCOUNTER 2024-08-21 03:37 | Day surgery (SDC) | payer OTHER ==
[~2024-08-21 03:37] MED LIST changes: +NITRO-DUR1 EACH TOP
[2024-08-21] MEDS ORDERED: CefTRIAXone Sodium 2,000 MG in NS 100 ML IV SCH (06:00)
[2024-08-21 09:48] VITALS: BP 147/82
[2024-08-22] MEDS ORDERED: OXYCODONE-ACET1 EAC3 PO (12:29)
== END 2024-08-21 10:15 | disposition home or self-care (01) ==
LOC: ATC 03:37
DX: M00.811 Arthritis due to other bacteria, right shoulder (principal); I25.10 Atherosclerotic heart disease of native coronary artery without angina pectoris; I11.0 Hypertensive heart disease with heart failure; I50.9 Heart failure, unspecified; E78.5 Hyperlipidemia, unspecified; E87.6 Hypokalemia; Z95.0 Presence of cardiac pacemaker; Z95.5 Presence of coronary angioplasty implant and graft; Z79.82 Long term (current) use of aspirin; Z79.899 Other long term (current) drug therapy; Z91.09 Other allergy status, other than to drugs and biological substances
CPT/HCPCS: 96365; J0696

== ENCOUNTER 2024-08-22 00:04 | Day surgery (SDC) | payer OTHER ==
[2024-08-22] MEDS ORDERED: CefTRIAXone Sodium 2,000 MG in NS 100 ML IV SCH (09:00)
[2024-08-22 11:42] VITALS: BP 140/72
[2024-08-22] MEDS ORDERED: OXYCODONE-ACET1 EAC3 PO (12:29)
== END 2024-08-22 12:11 | disposition home or self-care (01) ==
LOC: ATC 00:04
DX: M00.9 Pyogenic arthritis, unspecified (principal); I11.0 Hypertensive heart disease with heart failure; I50.9 Heart failure, unspecified; E87.6 Hypokalemia; I25.10 Atherosclerotic heart disease of native coronary artery without angina pectoris; I49.5 Sick sinus syndrome; E78.5 Hyperlipidemia, unspecified; G89.29 Other chronic pain; M54.9 Dorsalgia, unspecified; J30.81 Allergic rhinitis due to animal (cat) (dog) hair and dander; Z79.82 Long term (current) use of aspirin; Z79.899 Other long term (current) drug therapy; Z95.0 Presence of cardiac pacemaker; Z95.5 Presence of coronary angioplasty implant and graft; Z98.1 Arthrodesis status
CPT/HCPCS: 96365; J0696

== ENCOUNTER 2024-08-23 03:10 | Day surgery (SDC) | payer OTHER ==
[~2024-08-23 03:10] MED LIST changes: +CefTRIAXone Sodium 2,000 MG in NS 100 ML IV SCH; +OXYCODONE-ACET1 EAC3 PO
[2024-08-23] MEDS ORDERED: CefTRIAXone Sodium 2,000 MG in NS 100 ML IV SCH (06:50)
[2024-08-23 11:51] VITALS: BP 113/75
== END 2024-08-23 12:17 | disposition home or self-care (01) ==
LOC: ATC 03:10
DX: M00.9 Pyogenic arthritis, unspecified (principal); I11.0 Hypertensive heart disease with heart failure; I50.9 Heart failure, unspecified; E87.6 Hypokalemia; I25.10 Atherosclerotic heart disease of native coronary artery without angina pectoris; I49.5 Sick sinus syndrome; E78.5 Hyperlipidemia, unspecified; G89.29 Other chronic pain; M54.9 Dorsalgia, unspecified; N40.0 Benign prostatic hyperplasia without lower urinary tract symptoms; J30.81 Allergic rhinitis due to animal (cat) (dog) hair and dander; Z79.82 Long term (current) use of aspirin; Z79.899 Other long term (current) drug therapy; Z95.0 Presence of cardiac pacemaker; Z95.5 Presence of coronary angioplasty implant and graft
CPT/HCPCS: 96365; J0696

== ENCOUNTER 2024-08-24 04:42 | Day surgery (SDC) | payer OTHER ==
[2024-08-24 11:30] VITALS: BP 127/80
== END 2024-08-24 12:18 | disposition home or self-care (01) ==
LOC: ATC 04:42
DX: M00.9 Pyogenic arthritis, unspecified (principal); I11.0 Hypertensive heart disease with heart failure; I50.9 Heart failure, unspecified; E87.6 Hypokalemia; I25.10 Atherosclerotic heart disease of native coronary artery without angina pectoris; I49.5 Sick sinus syndrome; E78.5 Hyperlipidemia, unspecified; G89.29 Other chronic pain; M54.9 Dorsalgia, unspecified; N40.0 Benign prostatic hyperplasia without lower urinary tract symptoms; J30.81 Allergic rhinitis due to animal (cat) (dog) hair and dander; Z79.82 Long term (current) use of aspirin; Z79.899 Other long term (current) drug therapy; Z95.0 Presence of cardiac pacemaker; Z95.5 Presence of coronary angioplasty implant and graft
CPT/HCPCS: 96365; C1751; J0696

== ENCOUNTER 2024-08-25 04:07 | Day surgery (SDC) | payer OTHER ==
[~2024-08-25 04:07] MED LIST changes: -CefTRIAXone Sodium 2,000 MG in NS 100 ML IV SCH
[2024-08-25] MEDS ORDERED: CefTRIAXone Sodium 2,000 MG in NS 100 ML IV SCH (06:00)
[2024-08-25 11:47] VITALS: BP 143/95
[2024-08-25 12:12] VITALS: BP 150/83
== END 2024-08-25 23:00 | disposition home or self-care (01) ==
LOC: ATC 04:07
DX: M00.9 Pyogenic arthritis, unspecified (principal); I25.10 Atherosclerotic heart disease of native coronary artery without angina pectoris; I49.5 Sick sinus syndrome; I11.0 Hypertensive heart disease with heart failure; I50.9 Heart failure, unspecified; E78.5 Hyperlipidemia, unspecified; G89.29 Other chronic pain; M54.9 Dorsalgia, unspecified; N40.0 Benign prostatic hyperplasia without lower urinary tract symptoms; J30.81 Allergic rhinitis due to animal (cat) (dog) hair and dander; E87.6 Hypokalemia; Z79.82 Long term (current) use of aspirin; Z79.899 Other long term (current) drug therapy; Z95.0 Presence of cardiac pacemaker; Z95.5 Presence of coronary angioplasty implant and graft
CPT/HCPCS: 96365; J0696

== ENCOUNTER 2024-08-26 03:54 | Day surgery (SDC) | payer OTHER ==
[2024-08-26] MEDS ORDERED: CefTRIAXone Sodium 2,000 MG in NS 100 ML IV SCH (06:00)
[2024-08-26 11:47] VITALS: BP 160/90
== END 2024-08-26 12:09 | disposition home or self-care (01) ==
LOC: ATC 03:54
DX: M00.9 Pyogenic arthritis, unspecified (principal); I11.0 Hypertensive heart disease with heart failure; I50.9 Heart failure, unspecified; E87.6 Hypokalemia; I25.10 Atherosclerotic heart disease of native coronary artery without angina pectoris; I49.5 Sick sinus syndrome; E78.5 Hyperlipidemia, unspecified; G89.29 Other chronic pain; M54.9 Dorsalgia, unspecified; N40.0 Benign prostatic hyperplasia without lower urinary tract symptoms; J30.81 Allergic rhinitis due to animal (cat) (dog) hair and dander; Z79.82 Long term (current) use of aspirin; Z79.899 Other long term (current) drug therapy; Z95.0 Presence of cardiac pacemaker; Z95.5 Presence of coronary angioplasty implant and graft
CPT/HCPCS: 96365; J0696

== ENCOUNTER 2024-08-27 01:39 | Day surgery (SDC) | payer OTHER ==
[~2024-08-27 01:39] MED LIST changes: +CefTRIAXone Sodium 2,000 MG in NS 100 ML IV SCH
[2024-08-27 11:39] VITALS: BP 128/77
== END 2024-08-27 11:56 | disposition home or self-care (01) ==
LOC: ATC 01:39
DX: M00.9 Pyogenic arthritis, unspecified (principal); I11.0 Hypertensive heart disease with heart failure; I50.9 Heart failure, unspecified; E87.6 Hypokalemia; I25.10 Atherosclerotic heart disease of native coronary artery without angina pectoris; I49.5 Sick sinus syndrome; E78.5 Hyperlipidemia, unspecified; G89.29 Other chronic pain; M54.9 Dorsalgia, unspecified; N40.0 Benign prostatic hyperplasia without lower urinary tract symptoms; J30.81 Allergic rhinitis due to animal (cat) (dog) hair and dander; Z79.82 Long term (current) use of aspirin; Z79.899 Other long term (current) drug therapy; Z95.0 Presence of cardiac pacemaker; Z95.5 Presence of coronary angioplasty implant and graft
CPT/HCPCS: 96365; J0696

== ENCOUNTER 2024-08-28 01:29 | Day surgery (SDC) | payer OTHER ==
[~2024-08-28 01:29] MED LIST changes: -CefTRIAXone Sodium 2,000 MG in NS 100 ML IV SCH
[2024-08-28] MEDS ORDERED: CefTRIAXone Sodium 2,000 MG in NS 100 ML IV SCH (06:00)
[2024-08-28 12:00] VITALS: BP 134/71
== END 2024-08-28 12:20 | disposition home or self-care (01) ==
LOC: ATC 01:29
DX: M00.9 Pyogenic arthritis, unspecified (principal); I11.0 Hypertensive heart disease with heart failure; I50.9 Heart failure, unspecified; E87.6 Hypokalemia; I25.10 Atherosclerotic heart disease of native coronary artery without angina pectoris; I49.5 Sick sinus syndrome; E78.5 Hyperlipidemia, unspecified; G89.29 Other chronic pain; M54.9 Dorsalgia, unspecified; N40.0 Benign prostatic hyperplasia without lower urinary tract symptoms; J30.81 Allergic rhinitis due to animal (cat) (dog) hair and dander; Z79.82 Long term (current) use of aspirin; Z79.899 Other long term (current) drug therapy; Z95.0 Presence of cardiac pacemaker; Z95.5 Presence of coronary angioplasty implant and graft
CPT/HCPCS: 96365; J0696

== ENCOUNTER 2024-08-29 01:56 | Day surgery (SDC) | payer OTHER ==
[~2024-08-29 01:56] MED LIST changes: +CefTRIAXone Sodium 2,000 MG in NS 100 ML IV SCH
[2024-08-29 11:50] VITALS: BP 111/67
== END 2024-08-29 12:21 | disposition home or self-care (01) ==
LOC: ATC 01:56
DX: M00.9 Pyogenic arthritis, unspecified (principal); I11.0 Hypertensive heart disease with heart failure; E87.6 Hypokalemia; I25.10 Atherosclerotic heart disease of native coronary artery without angina pectoris; I50.9 Heart failure, unspecified; E78.5 Hyperlipidemia, unspecified; N40.0 Benign prostatic hyperplasia without lower urinary tract symptoms; Z95.0 Presence of cardiac pacemaker; Z95.5 Presence of coronary angioplasty implant and graft; Z79.82 Long term (current) use of aspirin; Z79.899 Other long term (current) drug therapy; Z91.09 Other allergy status, other than to drugs and biological substances
CPT/HCPCS: 96365; J0696

== ENCOUNTER 2024-08-30 00:59 | Day surgery (SDC) | payer OTHER ==
[~2024-08-30 00:59] MED LIST changes: -CefTRIAXone Sodium 2,000 MG in NS 100 ML IV SCH
[2024-08-30] MEDS ORDERED: CefTRIAXone Sodium 2,000 MG in NS 100 ML IV SCH (01:00)
[2024-08-30 11:44] VITALS: BP 140/73
== END 2024-08-30 12:04 | disposition home or self-care (01) ==
LOC: ATC 00:59
DX: M00.9 Pyogenic arthritis, unspecified (principal); I25.10 Atherosclerotic heart disease of native coronary artery without angina pectoris; E78.5 Hyperlipidemia, unspecified; I11.0 Hypertensive heart disease with heart failure; I50.9 Heart failure, unspecified; Z95.0 Presence of cardiac pacemaker; Z91.048 Other nonmedicinal substance allergy status; Z79.82 Long term (current) use of aspirin; Z79.899 Other long term (current) drug therapy
CPT/HCPCS: 96365; J0696

== ENCOUNTER 2024-08-31 07:19 | Day surgery (SDC) | payer OTHER ==
[~2024-08-31 07:19] MED LIST changes: +CefTRIAXone Sodium 2,000 MG in NS 100 ML IV SCH
[2024-08-31 11:39] VITALS: BP 123/74
== END 2024-08-31 11:46 | disposition home or self-care (01) ==
LOC: ATC 07:19
DX: M00.9 Pyogenic arthritis, unspecified (principal); I11.0 Hypertensive heart disease with heart failure; I50.9 Heart failure, unspecified; E87.6 Hypokalemia; I25.10 Atherosclerotic heart disease of native coronary artery without angina pectoris; I49.5 Sick sinus syndrome; E78.5 Hyperlipidemia, unspecified; G89.29 Other chronic pain; M54.9 Dorsalgia, unspecified; N40.0 Benign prostatic hyperplasia without lower urinary tract symptoms; J30.81 Allergic rhinitis due to animal (cat) (dog) hair and dander; Z79.82 Long term (current) use of aspirin; Z79.899 Other long term (current) drug therapy; Z95.0 Presence of cardiac pacemaker; Z95.5 Presence of coronary angioplasty implant and graft
CPT/HCPCS: 96365; J0696

== ENCOUNTER 2024-09-01 00:38 | Day surgery (SDC) | payer OTHER ==
[~2024-09-01 00:38] MED LIST changes: -CefTRIAXone Sodium 2,000 MG in NS 100 ML IV SCH
[2024-09-01] MEDS ORDERED: CefTRIAXone Sodium 2,000 MG in NS 100 ML IV SCH (01:00)
[2024-09-01 11:33] VITALS: BP 136/94
== END 2024-09-01 11:49 | disposition home or self-care (01) ==
LOC: ATC 00:38
DX: M00.9 Pyogenic arthritis, unspecified (principal); I11.0 Hypertensive heart disease with heart failure; I50.9 Heart failure, unspecified; E87.6 Hypokalemia; I25.10 Atherosclerotic heart disease of native coronary artery without angina pectoris; I49.5 Sick sinus syndrome; E78.5 Hyperlipidemia, unspecified; G89.29 Other chronic pain; M54.9 Dorsalgia, unspecified; N40.0 Benign prostatic hyperplasia without lower urinary tract symptoms; J30.81 Allergic rhinitis due to animal (cat) (dog) hair and dander; Z79.82 Long term (current) use of aspirin; Z79.899 Other long term (current) drug therapy; Z95.0 Presence of cardiac pacemaker; Z95.5 Presence of coronary angioplasty implant and graft
CPT/HCPCS: 96365; J0696

== ENCOUNTER 2024-09-02 01:14 | Day surgery (SDC) | payer OTHER ==
[~2024-09-02 01:14] MED LIST changes: +CefTRIAXone Sodium 2,000 MG in NS 100 ML IV SCH
[2024-09-02 11:51] VITALS: BP 148/82
== END 2024-09-02 12:16 | disposition home or self-care (01) ==
LOC: ATC 01:14
DX: M00.9 Pyogenic arthritis, unspecified (principal); I25.10 Atherosclerotic heart disease of native coronary artery without angina pectoris; I11.0 Hypertensive heart disease with heart failure; I50.9 Heart failure, unspecified; E78.5 Hyperlipidemia, unspecified; N40.0 Benign prostatic hyperplasia without lower urinary tract symptoms; Z95.5 Presence of coronary angioplasty implant and graft; Z95.0 Presence of cardiac pacemaker; Z91.09 Other allergy status, other than to drugs and biological substances; Z79.82 Long term (current) use of aspirin; Z79.899 Other long term (current) drug therapy
CPT/HCPCS: 96365; J0696

== ENCOUNTER 2024-09-03 02:29 | Day surgery (SDC) | payer OTHER ==
[2024-09-03 11:47] VITALS: BP 145/85
== END 2024-09-03 12:08 | disposition home or self-care (01) ==
LOC: ATC 02:29
DX: M00.9 Pyogenic arthritis, unspecified (principal); I11.0 Hypertensive heart disease with heart failure; I50.9 Heart failure, unspecified; E78.5 Hyperlipidemia, unspecified; Z91.048 Other nonmedicinal substance allergy status; Z79.82 Long term (current) use of aspirin; Z79.899 Other long term (current) drug therapy; E87.6 Hypokalemia
CPT/HCPCS: 96365; J0696

== ENCOUNTER 2024-09-04 02:00 | Day surgery (SDC) | payer OTHER ==
[2024-09-04 11:48] VITALS: BP 144/90
== END 2024-09-04 12:19 | disposition home or self-care (01) ==
LOC: ATC 02:00
DX: M00.9 Pyogenic arthritis, unspecified (principal); I25.10 Atherosclerotic heart disease of native coronary artery without angina pectoris; E78.5 Hyperlipidemia, unspecified; I11.0 Hypertensive heart disease with heart failure; I50.9 Heart failure, unspecified; Z91.048 Other nonmedicinal substance allergy status; Z79.899 Other long term (current) drug therapy
CPT/HCPCS: 96365; J0696

== ENCOUNTER 2024-09-05 06:20 | Day surgery (SDC) | payer OTHER ==
[2024-09-05 11:48] VITALS: BP 129/68
== END 2024-09-05 12:16 | disposition home or self-care (01) ==
LOC: ATC 06:20
DX: M00.9 Pyogenic arthritis, unspecified (principal); I25.10 Atherosclerotic heart disease of native coronary artery without angina pectoris; I11.0 Hypertensive heart disease with heart failure; I50.9 Heart failure, unspecified; E78.5 Hyperlipidemia, unspecified; N40.0 Benign prostatic hyperplasia without lower urinary tract symptoms; Z95.5 Presence of coronary angioplasty implant and graft; Z79.82 Long term (current) use of aspirin; Z79.899 Other long term (current) drug therapy; Z91.09 Other allergy status, other than to drugs and biological substances
CPT/HCPCS: 96365; J0696

== ENCOUNTER 2024-09-06 01:19 | Day surgery (SDC) | payer OTHER ==
[2024-09-06 11:55] VITALS: BP 170/73
== END 2024-09-06 12:23 | disposition home or self-care (01) ==
LOC: ATC 01:19
DX: M00.9 Pyogenic arthritis, unspecified (principal); I25.10 Atherosclerotic heart disease of native coronary artery without angina pectoris; I49.5 Sick sinus syndrome; I11.0 Hypertensive heart disease with heart failure; I50.9 Heart failure, unspecified; E78.5 Hyperlipidemia, unspecified; G89.29 Other chronic pain; M54.9 Dorsalgia, unspecified; N40.0 Benign prostatic hyperplasia without lower urinary tract symptoms; J30.81 Allergic rhinitis due to animal (cat) (dog) hair and dander; Z79.82 Long term (current) use of aspirin; Z79.899 Other long term (current) drug therapy; Z95.0 Presence of cardiac pacemaker; Z95.5 Presence of coronary angioplasty implant and graft
CPT/HCPCS: 96365; J0696

== ENCOUNTER 2024-09-07 00:37 | Day surgery (SDC) | payer OTHER ==
[~2024-09-07 00:37] MED LIST changes: -CefTRIAXone Sodium 2,000 MG in NS 100 ML IV SCH
[2024-09-07] MEDS ORDERED: CefTRIAXone Sodium 2,000 MG in NS 100 ML IV SCH (01:00)
[2024-09-07 11:45] VITALS: BP 133/72
--- NOTE | 2024-09-07 15:13 | NUR ---
EXTENDED DWELL LINE TO RIGHT UPPER ARM FLUSHES EASILY AND WITHOUT PAIN FOR THE PT. THERE WAS NO BLOOD RETURN TODAY. WHEN SETTING UP FOR EXT DWELL DRESSING CHANGE, IT WAS NOTICED THAT THE ARM APPROXIMATELY 10CM ABOVE THE INSERTION SITE APPEARED SWOLLEN AND HARDENED TO THE TOUCH. THIS IS THE SAME SIDE THAT THE PT HAS AN INJURED SHOULDER/ROTATOR CUFF. WHEN ASKED IF THE AREA WAS SORE HE STATED THAT THIS AREA HAS BEEN MORE SORE THAN HIS UPPER SHOULDER/ROTATOR CUFF. HE STATED THAT THE PAIN WAS CONSTANT AND IT WASN'T MADE WORSE DURING HIS INFUSIONS. GANESH LEPE RN WHO LAST CHANGED THE PT'S EXT DWELL DRESSING VISUALIZE THE ARM AND SHERLEY DOES NOT RECALL THE AREA BEING SWOLLEN LIKE IT WAS TODAY. A DECISION WAS MADE TO REMOVE THE EXTENDED DWELL AND PLACE A PERIPHERAL IV. WHEN THE EXTENDED DWELL CATHETER WAS REMOVED, THE TIP WAS BLOOD STAINED, SUGGESTING THAT THE LINE MAY HAVE BEEN IN THE VEIN STILL. ADVISED PT TO MONITOR HIS ARM AND IF THE PAIN PERSISTS AND THE SWELLING DOES NOT GO DOWN, HE SHOULD SEE HIS MD. NEW IV LINE PLACED TODAY TO RIGHT FOREARM. PT WAS EDUCATED.
== END 2024-09-07 12:20 | disposition home or self-care (01) ==
LOC: ATC 00:37
DX: M00.9 Pyogenic arthritis, unspecified (principal); I25.10 Atherosclerotic heart disease of native coronary artery without angina pectoris; I49.5 Sick sinus syndrome; I11.0 Hypertensive heart disease with heart failure; I50.9 Heart failure, unspecified; E78.5 Hyperlipidemia, unspecified; G89.29 Other chronic pain; M54.9 Dorsalgia, unspecified; N40.0 Benign prostatic hyperplasia without lower urinary tract symptoms; J30.81 Allergic rhinitis due to animal (cat) (dog) hair and dander; Z79.82 Long term (current) use of aspirin; Z79.899 Other long term (current) drug therapy; Z95.0 Presence of cardiac pacemaker; Z95.5 Presence of coronary angioplasty implant and graft
CPT/HCPCS: 96365; J0696

== ENCOUNTER 2024-09-08 01:30 | Day surgery (SDC) | payer OTHER ==
[2024-09-08] MEDS ORDERED: CefTRIAXone Sodium 2,000 MG in NS 100 ML IV SCH (06:00)
[2024-09-08 11:48] VITALS: BP 147/93
== END 2024-09-08 12:27 | disposition home or self-care (01) ==
LOC: ATC 01:30
DX: M00.9 Pyogenic arthritis, unspecified (principal); I11.0 Hypertensive heart disease with heart failure; I50.9 Heart failure, unspecified; E87.6 Hypokalemia; I25.10 Atherosclerotic heart disease of native coronary artery without angina pectoris; I49.5 Sick sinus syndrome; E78.5 Hyperlipidemia, unspecified; G89.29 Other chronic pain; M54.9 Dorsalgia, unspecified; N40.0 Benign prostatic hyperplasia without lower urinary tract symptoms; J30.81 Allergic rhinitis due to animal (cat) (dog) hair and dander; Z79.82 Long term (current) use of aspirin; Z79.899 Other long term (current) drug therapy; Z95.0 Presence of cardiac pacemaker; Z95.5 Presence of coronary angioplasty implant and graft
CPT/HCPCS: 96365; J0696

== ENCOUNTER 2024-09-09 01:10 | Day surgery (SDC) | payer OTHER ==
[~2024-09-09 01:10] MED LIST changes: +CefTRIAXone Sodium 2,000 MG in NS 100 ML IV SCH
[2024-09-09 11:50] VITALS: BP 142/83
== END 2024-09-09 12:07 | disposition home or self-care (01) ==
LOC: ATC 01:10
DX: M00.9 Pyogenic arthritis, unspecified (principal); I11.0 Hypertensive heart disease with heart failure; I50.9 Heart failure, unspecified; I25.10 Atherosclerotic heart disease of native coronary artery without angina pectoris; I49.5 Sick sinus syndrome; E78.5 Hyperlipidemia, unspecified; G89.29 Other chronic pain; M54.9 Dorsalgia, unspecified; N40.0 Benign prostatic hyperplasia without lower urinary tract symptoms; J30.81 Allergic rhinitis due to animal (cat) (dog) hair and dander; Z79.82 Long term (current) use of aspirin; Z79.899 Other long term (current) drug therapy; Z95.0 Presence of cardiac pacemaker; Z95.5 Presence of coronary angioplasty implant and graft
CPT/HCPCS: 96365; J0696

== ENCOUNTER 2024-09-10 01:34 | Day surgery (SDC) | payer OTHER ==
[2024-09-10 11:47] VITALS: BP 150/90
== END 2024-09-10 12:06 | disposition home or self-care (01) ==
LOC: ATC 01:34
DX: M00.9 Pyogenic arthritis, unspecified (principal); I25.10 Atherosclerotic heart disease of native coronary artery without angina pectoris; I11.0 Hypertensive heart disease with heart failure; I50.9 Heart failure, unspecified; E78.5 Hyperlipidemia, unspecified; Z79.82 Long term (current) use of aspirin; Z79.899 Other long term (current) drug therapy; Z91.048 Other nonmedicinal substance allergy status
CPT/HCPCS: 96365; J0696

== ENCOUNTER 2025-01-04 12:05 | Emergency (ER) | payer OTHER | END 2025-01-04 15:08 | disposition home or self-care (01) | LOC: ER 12:05 | DX: R07.89 Other chest pain (principal); M25.552 Pain in left hip; R10.32 Left lower quadrant pain; I25.10 Atherosclerotic heart disease of native coronary artery without angina pectoris; I11.0 Hypertensive heart disease with heart failure; I50.9 Heart failure, unspecified; E78.5 Hyperlipidemia, unspecified; Z91.81 History of falling; Z95.5 Presence of coronary angioplasty implant and graft; Z95.0 Presence of cardiac pacemaker; Z79.899 Other long term (current) drug therapy ==

== ENCOUNTER 2025-01-22 19:18 | Emergency (ER) | payer OTHER ==
[~2025-01-22] VITALS: Ht 152.4 cm; Wt 63.5 kg
[~2025-01-22 19:18] MED LIST changes: +ACET500 PO; -CefTRIAXone Sodium 2,000 MG in NS 100 ML IV SCH
[2025-01-22 19:48] LABS: BASOPHILS ABSOLUTE AUTO 0.04 K/mm3 (0.00-0.23); BASOPHILS PERCENT AUTO 1 % (0-2); EOSINOPHILS ABSOLUTE AUTO 0.11 K/mm3 (0.00-0.68); EOSINOPHILS PERCENT AUTO 2 % (0-6); Hematocrit 42.3 % (37.0-53.0); Hemoglobin 14.0 g/dL (13.5-17.5); IMMATURE GRAN ABSOLUTE AUTO 0.01 K/mm3 (0.00-0.10); IMMATURE GRAN PERCENT AUTO 0 % (0-1); LYMPHOCYTES ABSOLUTE AUTO 1.17 K/mm3 (0.84-5.20); LYMPHOCYTES PERCENT AUTO 19 % (21-46); MONOCYTES ABSOLUTE AUTO 0.58 K/mm3 (0.16-1.47); MONOCYTES PERCENT AUTO 10 % (4-13); Mean Corpuscular HGB Conc 33.1 g/dL (31.5-36.5); Mean Corpuscular Volume 86 fL (80-100); NEUTROPHILS ABSOLUTE AUTO 4.15 K/mm3 (1.96-9.15); NEUTROPHILS PERCENT AUTO 68 % (41-73); NRBC ABSOLUTE 0.00 K/mm3 (0.00-0.02); NRBC Auto 0.0 /100 WBC (0.0-0.2); Platelet Count 287 K/mm3 (150-400); RDW Coefficient Variation 15.5 % (11.7-14.2); RDW Standard Deviation 49.1 fL (35.1-46.3)
[2025-01-22 20:14] LABS: Alanine Aminotransfer (ALT/SGP 61.0 U/L (12-78); Albumin, Blood 3.5 g/dL (3.4-5.0); Albumin/Globulin Ratio 0.9 (0.8-1.8); Anion Gap 10.0 mmol/L (3-11); Aspartate Aminotrans (AST/SGOT 49.0 U/L (12-37); Bilirubin, Total 0.6 mg/dL (0.1-1.0); Blood Urea Nitrogen 18.0 mg/dL (8-24); CO2, Blood 23.0 mmol/L (21-32); Calcium, Blood 8.4 mg/dL (8.5-10.1); Chloride, Blood 110.0 mmol/L (98-108); Creatinine, Blood 0.96 mg/dL (0.60-1.20); Globulin, Blood 3.8 g/dL (2.2-4.0); Glucose, Blood 147.0 mg/dL (70-99); Potassium, Blood 3.8 mmol/L (3.5-5.5); Sodium, Blood 139.0 mmol/L (136-145); Total Protein, Blood 7.3 g/dL (6.4-8.2)
[2025-01-23 04:30] VITALS: BP 133/89
== END 2025-01-23 04:51 | disposition home or self-care (01) ==
LOC: ER 19:18
PROVIDERS: Emergency Medicine
DX: S46.911A Strain of unspecified muscle, fascia and tendon at shoulder and upper arm level, right arm, initial encounter (principal); E78.5 Hyperlipidemia, unspecified; G47.00 Insomnia, unspecified; X58.XXXA Exposure to other specified factors, initial encounter; Z79.899 Other long term (current) drug therapy; Z79.51 Long term (current) use of inhaled steroids
CPT/HCPCS: 73201; 76705; 80053; 85025; 93005; 93010; 99285-25; Q9967

== ENCOUNTER 2025-02-08 12:13 | Emergency (ER) | payer OTHER ==
[~2025-02-08] VITALS: Ht 167.6 cm; Wt 63.5 kg
[2025-02-08] MEDS ORDERED: Ketorolac Tromethamine 15mg Vial IM ONE (12:35)
[2025-02-08 16:27] VITALS: BP 158/87
== END 2025-02-08 16:46 | disposition home or self-care (01) ==
LOC: ER 12:13
DX: S52.591A Other fractures of lower end of right radius, initial encounter for closed fracture (principal); S52.611A Displaced fracture of right ulna styloid process, initial encounter for closed fracture; W10.1XXA Fall (on)(from) sidewalk curb, initial encounter; I25.10 Atherosclerotic heart disease of native coronary artery without angina pectoris; I11.0 Hypertensive heart disease with heart failure; I50.9 Heart failure, unspecified; E78.5 Hyperlipidemia, unspecified; Z79.899 Other long term (current) drug therapy; Z95.0 Presence of cardiac pacemaker; Z95.5 Presence of coronary angioplasty implant and graft
CPT/HCPCS: 25605; 73110; 96372-59; 99283-25; A9270; J1885; J7120

== ENCOUNTER 2025-02-16 11:36 | Day surgery (SDC) | payer OTHER ==
[~2025-02-16] VITALS: Ht 167.6 cm; Wt 62.5 kg
[2025-02-16] VITALS (11 sets, daily range): BP systolic 120–154; BP diastolic 69–98
[~2025-02-16 11:36] MED LIST changes: +Bupivacaine 0.5% W/EPI 1:200000 SDV 30 ML Vial ONE; +CeFAZolin Sodium 2,000 MG in NS 100 ML IV SCH
[2025-02-16] MEDS ORDERED: FentaNYL Citrate 50 MCG/ML 2 ML Injection ONE (11:51)
[2025-02-16] MEDS ORDERED: Midazolam HCl 1MG / ML 2ML Vial ONE (11:51)
--- NOTE | 2025-02-16 12:01 | NUR ---
Ambulatory in Day Surgery Pre-Op teaching done. Pt verbalizes understanding. History, Chart, Medications and Allergies reviewed before start of procedure.Patient confirms NPO status and agrees with scheduled surgery. Patient reports completing Chlorhexadine shower X2 prior to admission to hospital.
--- NOTE | 2025-02-16 12:34 | NUR ---
TIME OUT PERFORMED WITH DR. VALLES FOR RIGHT SUPRACLAVICULAR BLOCK 02 AT 4L/MIN PER NC. CONT. PULSE OX. 02 SAT'S 99% START 1239 STOP 1248
[2025-02-16] MEDS ORDERED: Ondansetron HCl 2 MG / ML 2ML Vial ONE (13:19)
[2025-02-16] MEDS ORDERED: Dexamethasone Sod Phos 10 MG/ML 1ML VIAL ONE (13:19)
[2025-02-16] MEDS ORDERED: FentaNYL Citrate 50 MCG/ML 2 ML Injection IV PRN ×3 (14:00)
[2025-02-16] MEDS ORDERED: Ondansetron HCl 2 MG / ML 2ML Vial IV PRN (14:00)
[2025-02-16] MEDS ORDERED: HYDROmorphone HCl/Pf 1MG SYR IV PRN (14:00)
--- NOTE | 2025-02-16 15:32 | NUR ---
1525 Discharge instructions reviewed with patient. Patient verbalizes understanding. Copy given to patient to take home. SLING GIVEN PT'S ARM STILL NUMB FROM BLOCK Patient up to Ambulate independently. Gait steady. UP TO BR TO VOID TOLERATING PO WELL. REPORTS HE HAS PAIN RX AT HOME Discharged via wheelchair to private car for ride home.
== END 2025-02-16 15:25 | disposition home or self-care (01) ==
LOC: ORSCMMR 11:36 → ORD 12:30 → ORSCMMR 12:30
PROVIDERS: Orthopaedic Surgery
PROC: 0PSH04Z Reposition Right Radius with Internal Fixation Device, Open Approach (ICD-10-PCS; principal; 2025-02-16 12:30)
DX: S52.551A Other extraarticular fracture of lower end of right radius, initial encounter for closed fracture (principal); E78.5 Hyperlipidemia, unspecified; I25.10 Atherosclerotic heart disease of native coronary artery without angina pectoris; Z79.899 Other long term (current) drug therapy
CPT/HCPCS: 73100; 93280; C1713; J0690; J1100; J2250; J2405; J2704; J3010; J7120